=== PATIENT | female | born 1950 | race Hispanic/Latino ===

== ENCOUNTER 2019-01-02 17:40 | Emergency (ER) | payer OTHER ==
--- OUTSIDE RECORDS SUMMARY | 2019-01-02 17:42 | XMS REPORT ---
:1950 [facility] Address [address] [place] [address] Dr. Armstrong [address] [place] [id number] Care Team Providers Name Role Phone Unavailable Unavailable Unavailable Problems This patient has no known problems. Allergies, Adverse Reactions, Alerts This patient has no known allergies or adverse reactions. Medications This patient has no known medications.
--- NOTE | 2019-01-02 19:07 | EDPHYS ---
Physician Documentation [facility] Name: Renay Quinones Age: 68 yrs Sex: Female : 1950 Arrival Date: 01/02/2019 Time: 17:40 Bed 12 Private MD: Ronen Erickson S ED Physician Hever Montemayor HPI: 01/02 19:03 This 68 yrs old Female presents to ER via Ambulatory with complaints of Arm ma2 Injury. 19:03 The patient or guardian complains of pain. The complaints affect the right bicep. ma2 Onset: The symptoms/episode began/occurred suddenly, 1 hour(s) ago. Associated signs and symptoms: Pertinent negatives: deformity, nausea, swelling, tingling. Severity of symptoms: At their worst the symptoms were mild, in the emergency department the symptoms have improved. lifted heavy stuff and had sudden right arm pain over biceps . Historical: - Allergies: 17:58 NKA; hb - Home Meds: 17:58 diclofenac sodium 3 % Topical gel [Active]; simvastatin 40 mg Oral tab 1 tab once daily hb [Active]; amlodipine 5 mg tab 1 tab once daily [Active]; carvedilol 6.25 mg oral tab 1 tab 2 times per day [Active]; - PMHx: 17:58 Hyperlipidemia; Hypertension; Kidney Disease; hb - PSHx: 17:58 herniated disc; uterine ablation; Cholecystectomy; hb - Immunization history:: Adult Immunizations up to date. - Social history:: Smoking status: Patient/guardian denies using tobacco, Patient/guardian denies using alcohol, street drugs, The patient lives with family. - Ebola Screening: : No symptoms or risks identified at this time. - Family history:: not pertinent. ROS: 19:03 Constitutional: Negative for fever, chills, and weight loss. ma2 19:03 MS/extremity: Positive for pain, Negative for contusion, deformity, rash, tenderness. 19:03 All other systems are negative. Exam: 19:03 Constitutional: This is a well developed, well nourished patient who is awake, alert, ma2 and in no acute distress. Cardiovascular: Regular rate and rhythm with a normal S1 and S2. No gallops, murmurs, or rubs. Normal PMI, no JVD. No pulse deficits. Respiratory: Lungs have equal breath sounds bilaterally, clear to auscultation and percussion. No rales, rhonchi or wheezes noted. No increased work of breathing, no retractions or nasal flaring. Abdomen/GI: Soft, non-tender, with normal bowel sounds. No distension or tympany. No guarding or rebound. No evidence of tenderness throughout. Skin: Warm, dry with normal turgor. Normal color with no rashes, no lesions, and no evidence of cellulitis. Neuro: Awake and alert, GCS 15, oriented to person, place, time, and situation. Cranial nerves II-XII grossly intact. Motor strength 5/5 in all extremities. Sensory grossly intact. Cerebellar exam normal. Normal gait. 19:03 Musculoskeletal/extremity: ROM: intact in all extremities, Circulation is intact in all extremities. Sensation intact. has ttp over right biceps . Vital Signs: 17:56 BP 159 / 88; Pulse 73; Resp 16; Temp 97.9; Pulse Ox 98% on R/A; Pain 8/10; hb MDM: 18:03 Patient medically screened. ma2 19:03 Differential diagnosis: muscle sprain. Data reviewed: vital signs, nurses notes. ma2 Counseling: I had a detailed discussion with the patient and/or guardian regarding: the historical points, exam findings, and any diagnostic results supporting the discharge/admit diagnosis, the presence of at least one elevated blood pressure reading (>120/80) during this emergency department visit. ED course: declined pain rx . Administered Medications: No medications were administered Disposition: 01/02/19 19:06 Discharged to Home. Impression: Strain of muscle, fascia and tendon of long head of biceps, right arm. - Condition is Stable. - Discharge Instructions: Muscle Strain. - Prescriptions for Voltaren 1 % Topical gel - apply 2 gram by TOPICAL route 4 times per day; 1 Container. - Work release form, Medication Reconciliation Form, Thank You Letter, Antibiotic Education, Prescription Opioid Use form. - Follow up: Private Physician; When: Tomorrow; Reason: Continuance of care. Signatures: Adam Rose RN RN jl3 Kristin Baker RN RN Hever Montemayor MD MD ma2 Corrections: (The following items were deleted from the chart) 19:49 19:06 01/02/2019 19:06 Discharged to Home. Impression: Strain of muscle, fascia and jl3 tendon of long head of biceps, right arm. Condition is Stable. Forms are Medication Reconciliation Form, Thank You Letter, Antibiotic Education, Prescription Opioid Use. Follow up: Private Physician; When: Tomorrow; Reason: Continuance of care. ma2
--- NOTE | 2019-01-02 19:07 | ER ---
Nurse's Notes [facility] Name: Renay Quinones Age: 68 yrs Sex: Female : 1950 Arrival Date: 01/02/2019 Time: 17:40 Bed 12 Private MD: Ronen Erickson S Diagnosis: Strain of muscle, fascia and tendon of long head of biceps, right arm Presentation: 01/02 17:55 Presenting complaint: Right upper arm pain after moving heavy potted plant approx 30 hb mins [employer]. Transition of care: patient was not received from another setting of care. Onset of symptoms was January 02, 2019. Risk Assessment: Do you want to hurt yourself or someone else? Patient reports no desire to harm self or others. Care prior to arrival: None. 17:55 Method Of Arrival: Ambulatory 17:55 Acuity: FREDI 4 hb 18:03 Initial Sepsis Screen: Does the patient meet any 2 criteria? No. Patient's initial mg2 sepsis screen is negative. Does the patient have a suspected source of infection? No. Patient's initial sepsis screen is negative. Triage Assessment: 18:17 General: Appears in no apparent distress. comfortable. Injury Description: swelling. mg2 Historical: - Allergies: 17:58 NKA; hb - Home Meds: 17:58 diclofenac sodium 3 % Topical gel [Active]; simvastatin 40 mg Oral tab 1 tab once daily hb [Active]; amlodipine 5 mg tab 1 tab once daily [Active]; carvedilol 6.25 mg oral tab 1 tab 2 times per day [Active]; - PMHx: 17:58 Hyperlipidemia; Hypertension; Kidney Disease; hb - PSHx: 17:58 herniated disc; uterine ablation; Cholecystectomy; hb - Immunization history:: Adult Immunizations up to date. - Social history:: Smoking status: Patient/guardian denies using tobacco, Patient/guardian denies using alcohol, street drugs, The patient lives with family. - Ebola Screening: : No symptoms or risks identified at this time. - Family history:: not pertinent. Screenin:02 Abuse screen: Denies threats or abuse. Denies injuries from another. Abuse screen: mg2 Denies threats or abuse. Nutritional screening: No deficits noted. Tuberculosis screening: No symptoms or risk factors identified. Fall Risk None identified. Assessment: 18:15 General: Appears in no apparent distress. comfortable, Behavior is calm, cooperative. mg2 Pain: Complains of pain in right arm Pain radiates to right hand Pain currently is 4 out of 10 on a pain scale. Quality of pain is described as aching, Pain began suddenly, 30 min ago. Neuro: Level of Consciousness is awake, alert, obeys commands, Oriented to person, place, time, situation. Cardiovascular: Capillary refill < 3 seconds Patient's skin is warm and dry. Respiratory: Airway is patent Respiratory effort is even, unlabored, Respiratory pattern is regular, symmetrical. GI: No signs and/or symptoms were reported involving the gastrointestinal system. : No signs and/or symptoms were reported regarding the genitourinary system. EENT: No signs and/or symptoms were reported regarding the EENT system. Derm: Skin is intact, is healthy with good turgor, Skin is pink, warm \T\ dry. normal. Musculoskeletal: Circulation, motion, and sensation intact. Capillary refill < 3 seconds, Swelling present in right upper arm. 19:44 Reassessment: Pt given instructions, verbalized understanding. Ambulatory, cooperative, jl3 with family.. Vital Signs: 17:56 BP 159 / 88; Pulse 73; Resp 16; Temp 97.9; Pulse Ox 98% on R/A; Pain 8/10; hb ED Course: 17:40 Patient arrived in ED. as 17:40 Ronen Erickson MD is Private Physician. as 17:56 Triage completed. hb 17:58 Arm band placed on. hb 18:02 Alonzo Mckeon, SEBASTIÁN is Primary Nurse. mg2 18:02 Hever Montemayor MD is Attending Physician. ma2 18:03 Patient has correct armband on for positive identification. mg2 18:03 No provider procedures requiring assistance completed. Patient did not have IV access mg2 during this emergency room visit. 18:17 Door closed. Ice pack to injury. mg2 Administered Medications: No medications were administered Outcome: 19:06 Discharge ordered by . ma2 19:46 Discharged to home via ambulance, with family. jl3 19:46 Condition: good 19:46 Condition: stable 19:46 Discharge instructions given to patient, family, Instructed on discharge instructions, Prescriptions given X 1. 19:49 Patient left the ED. jl3 Signatures: Trini Soriano John, RN RN jl3 Kristin Baker RN RN hb Hever Montemayor MD MD ma2 Alonzo Mckeon, RN RN mg2
== END 2019-01-02 19:49 | disposition home or self-care (01) ==
LOC: ER 17:40
DX: S46.111A Strain of muscle, fascia and tendon of long head of biceps, right arm, initial encounter (principal); X50.0XXA Overexertion from strenuous movement or load, initial encounter; E78.5 Hyperlipidemia, unspecified; I10 Essential (primary) hypertension; N28.9 Disorder of kidney and ureter, unspecified
CPT/HCPCS: 99282

== ENCOUNTER 2020-04-23 17:17 | Inpatient (IN) | payer OTHER ==
[2020-04-23] MEDS ORDERED: ACETAMINOPHEN 500 MG TAB ONE (18:22)
[2020-04-23] MEDS ORDERED: NA CHLORIDE 0.9% 2,000 ML ONE (18:22)
--- NOTE | 2020-04-23 18:38 | EDPHYS ---
Physician Documentation [facility] Name: Renay Quinones Age: 69 yrs Sex: Female : 1950 Arrival Date: 04/23/2020 Time: 17:18 Bed 8 Private MD: ED Physician Vasquez Vance HPI: 04/23 18:17 This 69 yrs old Female presents to ER via Ambulatory with complaints of kdr Shortness Of Breath - covid+, Nausea/Vomiting. 18:17 The patient has shortness of breath at rest, with light activity. Onset: The kdr symptoms/episode began/occurred suddenly, 1 week(s) ago. Duration: The symptoms are continuous, and are steadily getting worse. The patient's shortness of breath is aggravated by coughing, exertion, light activity, prone position. Associated signs and symptoms: Pertinent positives: productive cough, fever. Severity of symptoms: At their worst the symptoms were moderate severe. The patient has not experienced similar symptoms in the past. last week at [place]. Historical: - Allergies: 17:33 NKA; ss - Home Meds: 17:33 amlodipine 5 mg tab 1 tab once daily [Active]; ss - PMHx: 17:33 Hyperlipidemia; Hypertension; kidney disease; ss - PSHx: 17:33 herniated disc; uterine ablation; Cholecystectomy; ss - Immunization history:: Adult Immunizations up to date. - Social history:: Smoking status: Patient denies any tobacco usage or history of. ROS: 18:17 Constitutional: Negative for weight loss - has had fever and chills for the past week kdr Eyes: Negative for injury, pain, redness, and discharge, Neck: Negative for injury, pain, and swelling, Cardiovascular: Negative for chest pain, palpitations, and edema, Abdomen/GI: Negative for abdominal pain, nausea, vomiting, diarrhea, and constipation, Back: Negative for injury and pain, : Negative for injury, bleeding, discharge, and swelling, MS/Extremity: Negative for injury and deformity, Skin: Negative for injury, rash, and discoloration, Neuro: Negative for headache, weakness, numbness, tingling, and seizure activity. Psych: Negative for depression, anxiety, suicide ideation, homicidal ideation, and hallucinations, Allergy/Immunology: Negative for hives, rash, and allergies, Endocrine: Negative for neck swelling, polydipsia, polyuria, polyphagia, and marked weight changes, Hematologic/Lymphatic: Negative for swollen nodes, abnormal bleeding, and unusual bruising. 18:17 Respiratory: Positive for cough, dyspnea on exertion, shortness of breath. Exam: 18:17 Constitutional: This is a well developed, well nourished patient who is awake, alert, kdr and mild to moderate distress. Head/Face: Normocephalic, atraumatic. Eyes: Pupils equal round and reactive to light, extra-ocular motions intact. Lids and lashes normal. Conjunctiva and sclera are non-icteric and not injected. Cornea within normal limits. Periorbital areas with no swelling, redness, or edema. Neck: Trachea midline, no thyromegaly or masses palpated, and no cervical lymphadenopathy. Supple, full range of motion without nuchal rigidity, or vertebral point tenderness. No Meningismus. Chest/axilla: Normal chest wall appearance and motion. Nontender with no deformity. No lesions are appreciated. Cardiovascular: Regular rate and rhythm with a normal S1 and S2. No gallops, murmurs, or rubs. Normal PMI, no JVD. No pulse deficits. Abdomen/GI: Soft, non-tender, with normal bowel sounds. No distension or tympany. No guarding or rebound. No evidence of tenderness throughout. Back: No spinal tenderness. No costovertebral tenderness. Full range of motion. Skin: Warm, dry with normal turgor. Normal color with no rashes, no lesions, and no evidence of cellulitis. MS/ Extremity: Pulses equal, no cyanosis. Neurovascular intact. Full, normal range of motion. Neuro: Awake and alert, GCS 15, oriented to person, place, time, and situation. Cranial nerves II-XII grossly intact. Motor strength 5/5 in all extremities. Sensory grossly intact. Cerebellar exam normal. Normal gait. Psych: Awake, alert, with orientation to person, place and time. Behavior, mood, and affect are within normal limits. 18:17 Respiratory: the patient does not display signs of respiratory distress, Respirations: normal, Breath sounds: are clear throughout, Respiratory rate: 26 Vital Signs: 17:28 BP 139 / 105; Pulse 140; Resp 26; Temp 100.1(O); Pulse Ox 87% on R/A; Weight 67.13 kg; ss Height 5 ft. 2 in. (157.48 cm); Pain 8/10; 19:00 BP 123 / 75; Pulse 84; Resp 19; Pulse Ox 99% on R/A; Pain 4/10; ls4 19:32 BP 128 / 84; Pulse 122; Resp 25; Pulse Ox 93% on R/A; Pain 6/10; ls4 20:00 BP 109 / 73; Pulse 116; Resp 14; Temp 99.(O); Pulse Ox 97% on 1.5 lpm NC; Pain 4/10; ls4 21:51 BP 111 / 78; Pulse 84; Resp 19; Pulse Ox 96% on 2 lpm NC; Pain 3/10; ls4 22:36 BP 105 / 70; Pulse 88; Resp 16; Temp 99.4; Pulse Ox 97% on R/A; Pain 3/10; ls4 23:30 BP 117 / 68; Pulse 70; Resp 19; Pulse Ox 97% ; ea 04/24 00:00 BP 126 / 76; Pulse 70; Resp 17; Pulse Ox 98% ; ea 00:30 BP 107 / 72; Pulse 65; Resp 18; Pulse Ox 100% on 2 lpm NC; Pain 3/10; ls4 04/23 17:28 Body Mass Index 27.07 (67.13 kg, 157.48 cm) 04/23 19:32 o2 applied ls4 MDM: 18:38 Patient medically screened. kdr 04/24 08:53 Data reviewed: vital signs, nurses notes, lab test result(s), radiologic studies. kdr Counseling: I had a detailed discussion with the patient and/or guardian regarding: the historical points, exam findings, and any diagnostic results supporting the discharge/admit diagnosis, lab results, radiology results, the need for outpatient follow up. 04/23 18:08 Order name: Amylase, Serum [facility] 04/23 18:08 Order name: Basic Metabolic Panel [facility] 04/23 18:08 Order name: Blood Culture Adult (2) [facility] 04/23 18:08 Order name: CBC with Diff [facility] 04/23 18:08 Order name: Ckmb [facility] 04/23 18:08 Order name: CPK [facility] 04/23 18:08 Order name: Lactate [facility] 04/23 18:08 Order name: LFT's [facility] 04/23 18:08 Order name: Lipase [facility] 04/23 18:08 Order name: Procalcitonin [facility] 04/23 18:08 Order name: Protime (+inr) [facility] 04/23 18:08 Order name: Ptt, Activated 4 04/23 18:08 Order name: Troponin (emerg Dept Use Only) [facility] 04/23 18:08 Order name: Urine Microscopic Only 4 04/23 19:01 Order name: Flu 4 04/23 21:54 Order name: C-Reactive Protein [facility] 04/23 21:54 Order name: D-Dimer [facility] 04/23 21:54 Order name: Ferritin [facility] 04/23 21:54 Order name: Lactic Dehydrogenase [facility] 04/23 21:54 Order name: Procalcitonin [facility] 04/23 21:54 Order name: CBC with Automated Diff [facility] 04/23 21:54 Order name: CBC with Automated Diff [facility] 04/23 21:54 Order name: Comprehensive Metabolic Panel [facility] 04/23 21:54 Order name: Comprehensive Metabolic Panel [facility] 04/23 21:54 Order name: Lactate [facility] 04/23 21:54 Order name: Lactate ED[facility] 04/23 21:54 Order name: Lipid Profile [facility] 04/23 21:54 Order name: Lipid Profile [facility] 04/23 21:54 Order name: Magnesium [facility] 04/23 21:54 Order name: Magnesium EDMS 04/23 17:48 Order name: Chest Single View XRAY 1 04/23 18:08 Order name: Cardiac monitoring; Complete Time: 18:11 [facility] 04/23 18:08 Order name: EKG - Nurse/Tech; Complete Time: 18:11 [facility] 04/23 18:08 Order name: IV Saline Lock - Large Bore; Complete Time: 18:11 [facility] 04/23 18:08 Order name: Labs collected and sent; Complete Time: 00:25 [facility] 04/23 18:08 Order name: O2 Per Protocol; Complete Time: 00:25 [facility] 04/23 18:08 Order name: O2 Sat Monitoring; Complete Time: 00:26 [facility] 04/23 21:54 Order name: CONS Physician Consult [facility] 04/23 21:54 Order name: Regular [facility] 04/23 21:54 Order name: NT PRO-BNP EDMS 04/23 21:54 Order name: NT PRO-BNP EDMS 04/23 21:54 Order name: Phosphorus EDMS 04/23 21:54 Order name: Phosphorus EDMS 04/23 21:54 Order name: Protime (+INR) [facility] 04/23 21:54 Order name: Protime (+INR) ED[facility] 04/23 21:54 Order name: PTT, Activated Partial Thromb ED[facility] 04/23 21:54 Order name: PTT, Activated Partial Thromb [facility] 04/23 21:54 Order name: T4 Free ED[facility] 04/23 21:54 Order name: T4 Free ED[facility] 04/23 21:54 Order name: Thyroid Stimulating Hormone EDMS 04/23 21:54 Order name: Thyroid Stimulating Hormone EDMS Administered Medications: 04/23 18:23 Drug: NS 0.9% 500 ml Route: IV; Rate: bolus; Site: right subclavian; ls4 19:02 Follow up: IV Status: Completed infusion; IV Intake: 500ml ls4 18:28 Drug: Tylenol 1000 mg Route: PO; ls4 18:42 Follow up: Response: No adverse reaction; Marked relief of symptoms ls4 18:39 Not Given (Other Intervention Used): Decadron - Dexamethasone 10 mg IVP once ls4 18:41 Not Given (Physician Discretion): NS 0.9% (30 ml/kg) 30 ml/kg IV at bolus once; Sepsis ls4 Protocol 18:58 Drug: Zithromax 500 mg Route: IVPB; Infused Over: 1 hrs; Site: right antecubital; ls4 19:58 Follow up: Response: No adverse reaction; IV Status: Completed infusion; IV Intake: ls4 250ml 18:58 Drug: Decadron - Dexamethasone 6 mg Route: IVP; Site: right antecubital; ls4 19:02 Follow up: Response: No adverse reaction ls4 18:59 Drug: Rocephin - (cefTRIAXone) 1 grams Route: IVPB; Infused Over: 30 mins; Site: right ls4 forearm; 19:10 Follow up: IV Status: Completed infusion; IV Intake: 10ml ls4 Disposition: 04/23/20 18:38 Hospitalization ordered by Hever Rosenbaum for Inpatient Admission. Preliminary diagnosis is Sepsis. - Bed requested for Intensive Care Unit. - Status is Inpatient Admission. ls4 - Condition is Serious. - Problem is new. - Symptoms have improved. Signatures: Dispatcher [employer] EDMS Vasquez Vance MD MD kdr Cindy May, RN RN ss Adelina Lopez RN RN tl1 Rossy Kang RN RN ls4 Corrections: (The following items were deleted from the chart) 18:12 18:10 UA MICROSCOPIC+U.LAB.BRZ ordered. ED[facility] EDMS 22:14 18:38 Hospitalization Ordered by Hever Rosenbaum MD for Inpatient Admission. Preliminary tl1 diagnosis is Sepsis. Bed requested for Telemetry/MedSurg (Inpatient). Status is Inpatient Admission. Condition is Serious. Problem is new. Symptoms have improved. kdr 07 01:16 07 22:14 04/23/2020 18:38 Hospitalization Ordered by Hever Rosenbaum MD for Inpatient ls4 Admission. Preliminary diagnosis is Sepsis. Bed requested for Intensive Care Unit. Status is Inpatient Admission. Condition is Serious. Problem is new. Symptoms have improved. tl1
--- NOTE | 2020-04-23 18:38 | ER ---
Nurse's Notes [facility] Name: Renay Quinones Age: 69 yrs Sex: Female : 1950 Arrival Date: 04/23/2020 Time: 17:18 Bed 8 Private MD: Diagnosis: Sepsis Presentation: 04/23 17:28 Chief complaint: Patient states: shortness of breath and cough for 3 days, N/V/D for ss about 1 week, was covid pos 1 week ago, also reports chest pains. Coronavirus screen: Surgical mask placed on patient. Patient moved to private room, placed in contact and droplet isolation with eye protection until further assessment. Patient reports a cough. Patient reports shortness of breath or difficulty breathing. Patient reports a measured and/or subjective temperature greater than 100.4F. Patient denies travel on a cruise ship or to a country the [facility] currently lists as an affected area. Patient denies contact with known and/or suspected case of COVID-19. Prior COVID test confirmed positive. Ebola Screen: Patient negative for fever greater than or equal to 101.5 degrees Fahrenheit, and additional compatible Ebola Virus Disease symptoms Patient denies exposure to infectious person. Patient denies travel to an Ebola-affected area in the 21 days before illness onset. No symptoms or risks identified at this time. Initial Sepsis Screen: Does the patient meet any 2 criteria? RR > 20 per min. HR > 90 bpm. Yes Does the patient have a suspected source of infection? Yes: Productive cough/pneumonia If YES to both, name of provider notified: Vasquez Vance MD. Risk Assessment: Do you want to hurt yourself or someone else? Patient reports no desire to harm self or others. Onset of symptoms was April 18, 2020. 17:28 Method Of Arrival: Ambulatory ss 17:28 Acuity: FREDI 2 ss Triage Assessment: 18:43 General: Appears in no apparent distress. comfortable. Pain: Complains of pain in ls4 generalized. 18:43 General: Behavior is calm, cooperative. Neuro: No deficits noted. Cardiovascular: ls4 Capillary refill < 3 seconds Patient's skin is warm and dry. Rhythm is sinus tachycardia. Respiratory: Reports shortness of breath at rest cough that is non-productive, Airway is patent Respiratory effort is even, unlabored, Respiratory pattern is regular, Onset: The symptoms/episode began/occurred at an unknown time. the patient has moderate shortness of breath. Musculoskeletal: No deficits noted. No signs and/or symptoms reported regarding the musculoskeletal system. Historical: - Allergies: 17:33 NKA; ss - Home Meds: 17:33 amlodipine 5 mg tab 1 tab once daily [Active]; ss - PMHx: 17:33 Hyperlipidemia; Hypertension; kidney disease; ss - PSHx: 17:33 herniated disc; uterine ablation; Cholecystectomy; ss - Immunization history:: Adult Immunizations up to date. - Social history:: Smoking status: Patient denies any tobacco usage or history of. Screenin:36 Abuse screen: Denies threats or abuse. Denies injuries from another. Nutritional ls4 screening: No deficits noted. Tuberculosis screening: No symptoms or risk factors identified. Fall Risk None identified. Assessment: 17:30 Reassessment: Patient appears in no apparent distress at this time. Patient and/or ls4 family updated on plan of care and expected duration. Pain level reassessed. Patient is alert, oriented x 3, equal unlabored respirations, skin warm/dry/pink. 17:30 Cardiovascular: Denies chest pain, Capillary refill < 3 seconds. ls4 17:37 Respiratory: Airway is patent Respiratory effort is labored, Respiratory pattern is ls4 tachypnea Breath sounds are diminished bilaterally. 17:44 Reassessment: Patient appears in no apparent distress at this time. Patient and/or ls4 family updated on plan of care and expected duration. Pain level reassessed. Patient is alert, oriented x 3, equal unlabored respirations, skin warm/dry/pink. Patient states symptoms have improved. 17:44 Cardiovascular: Rhythm is sinus tachycardia. ls4 21:52 Reassessment: Patient appears in no apparent distress at this time. Patient and/or ls4 family updated on plan of care and expected duration. Pain level reassessed. Patient is alert, oriented x 3, equal unlabored respirations, skin warm/dry/pink. 22:41 Reassessment: REPORT TO DODIE LOGAN RN, AWAITING CURTAIN IN ROOM TO TRANSPORT. ls4 04/24 00:38 Reassessment: Patient appears in no apparent distress at this time. Patient and/or ls4 family updated on plan of care and expected duration. Pain level reassessed. Patient is alert, oriented x 3, equal unlabored respirations, skin warm/dry/pink. Vital Signs: 04/23 17:28 BP 139 / 105; Pulse 140; Resp 26; Temp 100.1(O); Pulse Ox 87% on R/A; Weight 67.13 kg; ss Height 5 ft. 2 in. (157.48 cm); Pain 8/10; 19:00 BP 123 / 75; Pulse 84; Resp 19; Pulse Ox 99% on R/A; Pain 4/10; ls4 19:32 BP 128 / 84; Pulse 122; Resp 25; Pulse Ox 93% on R/A; Pain 6/10; ls4 20:00 BP 109 / 73; Pulse 116; Resp 14; Temp 99.(O); Pulse Ox 97% on 1.5 lpm NC; Pain 4/10; ls4 21:51 BP 111 / 78; Pulse 84; Resp 19; Pulse Ox 96% on 2 lpm NC; Pain 3/10; ls4 22:36 BP 105 / 70; Pulse 88; Resp 16; Temp 99.4; Pulse Ox 97% on R/A; Pain 3/10; ls4 23:30 BP 117 / 68; Pulse 70; Resp 19; Pulse Ox 97% ; ea 04/24 00:00 BP 126 / 76; Pulse 70; Resp 17; Pulse Ox 98% ; ea 00:30 BP 107 / 72; Pulse 65; Resp 18; Pulse Ox 100% on 2 lpm NC; Pain 3/10; ls4 04/23 17:28 Body Mass Index 27.07 (67.13 kg, 157.48 cm) ss 04/23 19:32 o2 applied ls4 ED Course: 17:18 Patient arrived in ED. as 17:32 Triage completed. ss 17:33 Arm band placed on. ss 17:35 Rossy Kang, RN is Primary Nurse. ls4 17:55 Chest Single View XRAY In Process Unspecified. EDMS 18:09 No provider procedures requiring assistance completed. Initial lab(s) drawn, by edgar [email or web address] sent to lab. EKG done, by ED staff. Inserted saline lock: 18 gauge in left antecubital area, using aseptic technique. Blood collected. Patient maintains SpO2 saturation greater than 95% on room air. 18:16 Vasquez Vance MD is Attending Physician. kdr 18:32 Hever Rosenbaum MD is Hospitalizing Provider. kdr 18:45 Patient has correct armband on for positive identification. Bed in low position. Call ls4 light in reach. Side rails up X 1. monitor technician on. Pulse ox on. NIBP on. 21:52 No apparent distress. Awaiting bed assignment. ls4 04/24 00:25 Patient admitted, IV remains in place. ea Administered Medications: 04/23 18:23 Drug: NS 0.9% 500 ml Route: IV; Rate: bolus; Site: right subclavian; ls4 19:02 Follow up: IV Status: Completed infusion; IV Intake: 500ml ls4 18:28 Drug: Tylenol 1000 mg Route: PO; ls4 18:42 Follow up: Response: No adverse reaction; Marked relief of symptoms ls4 18:39 Not Given (Other Intervention Used): Decadron - Dexamethasone 10 mg IVP once ls4 18:41 Not Given (Physician Discretion): NS 0.9% (30 ml/kg) 30 ml/kg IV at bolus once; Sepsis ls4 Protocol 18:58 Drug: Zithromax 500 mg Route: IVPB; Infused Over: 1 hrs; Site: right antecubital; ls4 19:58 Follow up: Response: No adverse reaction; IV Status: Completed infusion; IV Intake: ls4 250ml 18:58 Drug: Decadron - Dexamethasone 6 mg Route: IVP; Site: right antecubital; ls4 19:02 Follow up: Response: No adverse reaction ls4 18:59 Drug: Rocephin - (cefTRIAXone) 1 grams Route: IVPB; Infused Over: 30 mins; Site: right ls4 forearm; 19:10 Follow up: IV Status: Completed infusion; IV Intake: 10ml ls4 Intake: 19:02 IV: 500ml; Total: 500ml. ls4 19:10 IV: 10ml; Total: 510ml. ls4 19:58 IV: 250ml; Total: 760ml. ls4 Outcome: 18:38 Decision to Hospitalize by Provider. kdr 19:00 Instructed on the need for admit, Demonstrated understanding of instructions. ea 04/24 01:14 Admitted to ICU accompanied by tech, room 7, with oxygen, Other ICU OVERFLOW Report ls4 called to DODIE LOGAN Condition: improved 01:16 Patient left the ED. ls4 Signatures: Dispatcher [employer] EDMS Vasquez Vance MD MD kdr Martinez, Amelia as Smirch, Shelby, RN RN ss Antunez, Elena, RN RN ea Stewart, Lisa, RN RN ls4 Corrections: (The following items were deleted from the chart) 04/23 20:28 20:27 IV Status: Completed infusion; IV Intake: 10ml ls4 ls4 20:46 18:30 Reassessment: Patient appears in no apparent distress at this time. Patient ls4 and/or family updated on plan of care and expected duration. Pain level reassessed. Patient is alert, oriented x 3, equal unlabored respirations, skin warm/dry/pink. Patient states symptoms have improved. ls4 22:41 20:00 BP 109 / 73; Pulse 88bpm; Resp 14bpm; Pulse Ox 97% 1.5 lpm Nasal Cannula; Temp ls4 99.F Oral; Pain 4/10; ls4
[2020-04-23] MEDS ORDERED: dexAMETHasone 10 MG/ML VIAL ONE (18:46)
[2020-04-23] MEDS ORDERED: CEFTRIAXONE/SWI 1gm 1 GM/10 ML SYR ONE (18:46)
[2020-04-23] MEDS ORDERED: AZITHROMYCIN 500 MG INJ IVPB ONE (18:46)
[2020-04-23] MEDS ORDERED: NA CHLORIDE 0.9% 250 ML ONE (18:47)
[2020-04-23 18:48] LABS: Absolute Lymphocytes (CBC) 0.6 K/uL (0.7-4.9); Basophils % 0.4 % (0-1.3); Hematocrit 44.7 % (36.0-45.0); Lymphocytes % 10.9 % (15.3-44.8); MPV 9.4 fL (7.6-11.3); RBC Red Blood Cell Count 5.03 M/uL (3.86-4.86)
[2020-04-23 18:57] LABS: Protime INR 1.15
--- NOTE | 2020-04-23 18:59 | RAD REPORT ---
EXAM DESCRIPTION: RAD - Chest Single View - 04/23/2020 5:54 pm CLINICAL HISTORY: sepsis, cough, shortness of breath, COVID positive test 1 week earlier COMPARISON: Chest exam March 27, 2019 TECHNIQUE: AP portable chest image was obtained 04/23/2020 5:54 pm . FINDINGS: Lung volumes are low compared to prior study. Ill-defined opacification is present in the mid right lung field. Left heart border is obscured by parenchymal stranding and low lung volumes. No significant failure or volume overload. Heart size and vasculature are not outside of normal range f or the low lung volumes. Trachea is midline. No measurable pleural effusion and no pneumothorax. No a cute bony abnormality seen. No acute aortic findings suspected. IMPRESSION: Hazy ground-glass type opacification in the right midlung field. Hazy left base opacific ation. Findings are suspicious for COVID-19 pneumonia given the radiographic findings and the positive COVID -19 test.
[2020-04-23 19:01] LABS: ALT/SGPT 34 U/L (12-78); Albumin 3.3 g/dL (3.4-5.0); Alkaline Phosphatase 84 U/L (45-117); Amylase 127 U/L (25-115); BUN Blood Urea Nitrogen 30 mg/dL (7-18); Bicarbonate 20 mmol/L (21-32); Bilirubin Direct 0.2 mg/dL (0-0.2); Bilirubin Total 0.6 mg/dL (0.2-1.0); CKMB Creatine Kinase MB < 1.0 ng/mL (0.3-3.6); Creatine Phosphokinase 51 U/L (26-192); Glucose Level 144 mg/dL (74-106); Lipase 409 U/L (73-393); Protein, Total 8.1 g/dL (6.4-8.2); Sodium Level 139 mmol/L (136-145); Troponin (Emerg Dept Use Only) < 0.02 ng/mL (0.0-0.045)
[2020-04-23 19:02] LABS: AST/SGOT 47 U/L (15-37); Potassium 3.9 mmol/L (3.5-5.1)
--- OUTSIDE RECORDS SUMMARY | 2020-04-23 19:28 | XMS REPORT | Summary of Care ---
:1950 Author Organization [facility] Address [address] [place] [id number] Care Team Providers Name Role Phone Guadalupe Smith Primary Care Provider Reason for Visit Reason Comments Assessment Encounter Details Date Type Department Care Team Description 02/19/2020 Telephone [facility] Family Medicine [place] all[place], DOMINIC Navarro Assessment - [address] [place] [address] [place] [address] [phone] Allergies No Known Allergiesdocumented as of this encounter (statuses as of 02/19/2020) Medications Medication Sig Dispensed Refills Start Date End Date Status amLODIPine 5 mg Take 5 mg by 0 04/28/2018 Active tabletIndications: mouth daily. Essential hypertension amitriptyline 25 mg 1-2 tab at 60 tablet 1 09/28/2018 Active tabletIndications: bedtime to relax Trapezius muscle spasm muscles. meclizine 25 mg Take 1 tablet by 30 tablet 0 02/03/2019 Active tabletIndications: mouth 3 (three) Vertigo times daily as needed for Dizziness. nebivolol (BYSTOLIC) 5 Bystolic 5 mg 0 Active mg tablet tablet cyclobenzaprine 5 mg Take 1 tablet by 21 tablet 0 10/18/2019 Active tabletIndications: Neck mouth 3 (three) pain, Acute pain of left times daily. shoulder methylPREDNISolone 4 mg Take by mouth 21 Each 0 10/21/2019 Active tabletsIndications: SEE-INSTRUCTIONS Cervical disc disease . follow package directions Diclofenac Sodium Apply to 1 Tube 0 10/20/2019 A ctive (VOLTAREN) 1 % area(s) 4 (four) gelIndications: Cervical times daily as disc disease needed for Pain (scale 1-3). acetaminophen-codeine Take 1 tablet by 12 tablet 0 10/20/2019 Active (TYLENOL-CODEINE #3) mouth every 6 300-30 mg (six) hours as tabletIndications: needed for Pain Cervical disc disease (scale 7-10). documented as of this encounter (statuses as of 02/19/2020) Active Problems Problem Noted Date Prediabetes 09/07/2017 Pancreatitis 08/27/2017 Essential hypertension 11/17/2015 Hyperlipidemia 11/17/2015 documented as of this encounter (statuses as of 02/19/2020) Immunizations Name Administration Dates Next Due Pneumococcal Polysaccharide, PPSV23 (PNEUMOVAX) 08/28/2017 Tdap 05/25/2019 documented as of this encounter Social History Tobacco Use Types Packs/Day Years Used Date Never Smoker Smokeless Tobacco: Never Used Alcohol Use Drinks/Week oz/Week Comments Yes 0 Standard drinks or equivalent 0.0 rare Sex Assigned at Date Recorded Not on file Job Start Date Occupation Industry Not on file Not on file Not on file Travel History Travel Start Travel End No recent travel history available. documented as of this encounter Last Filed Vital Signs Not on filedocumented in this encounter Plan of Treatment Date Type Specialty Care Team Description 02/19/2020 Telemedicine Visit Family Medicine Franco Gonzalez MD [address] [place] [address] [phone] Health Maintenance Due Date Last Done Comments HEPATITIS C (HCV) SCREEN 1950 Zoster Recombinant Vaccine 2002 (SHINGRIX) (1 of 2) Medicare Wellness Visit 2017 Osteoporosis Screening 2017 PNEUMOCOCCAL VACCINES 65+ (2 of 2 08/28/2018 08/28/2017 - PCV13) INFLUENZA VACCINE (#1) 2019 Breast Cancer Screening 05/25/2020 05/25/2019, 05/02/2018, (MAMMOGRAM) 04/25/2017, Additional history exists COLONOSCOPY 05/24/2028 05/24/2018 DTaP,Tdap,and Td Vaccines (2 - Td) 05/25/2029 05/25/2019 documented as of this encounter Results Not on filedocumented in this encounter Insurance Payer Benefit Plan / Subscriber ID Effective Dates Phone Addre ss Type Group AETNA AETNA O [id number] 2011-Tiana O nt MEDICARE MEDICARE PART xxxxxxxxxxx 2017-Daniel [phone] Medicare A 2 [id number] DOMINIC FARIA [id number] documented as of this encounter
--- OUTSIDE RECORDS SUMMARY | 2020-04-23 19:28 | XMS REPORT | Continuity of Care Document ---
:1950 Author Organization [facility] t Address [address] [place] [address] Care Team Providers Name Role Phone Pob1, Care Clinic Attending Clinician Unavailable Lisa KOWALSKI, A Attending Clinician Luis ALFARO, A Attending Clinician Doctor Unassigned, Name Attending Clinician Unavailable Problems This patient has no known problems. Allergies, Adverse Reactions, Alerts This patient has no known allergies or adverse reactions. Medications This patient has no known medications. Procedures This patient has no known procedures. Encounters Start End Encounter Admission Attending Care Care Encounter Source Date/Time Date/Time Type Type Clinicians Facility Department ID 2020-04-18 2020-04-18 Telephone Pob1, Acute [facility] [id number] 00:00:00 00:00:00 [facility] [id number] [place] [id number] Professio [phone] [place] [address] 2020-04-16 2020-04-16 Urgent Pob1, Acute [facility] [id number] 10:38:18 10:58:18 [facility] [id number] [place] [id number] Professio [phone] nal [address] 2020-02-19 2020-02-19 [facility] [id number] 14:22:08 16:51:14 ne Visit Jose Falcon [id number] [place] [id number] [phone] 2020-02-19 2020-02-19 [facility] [id number] 00:00:00 00:00:00 [facility] [id number] [place] [id number] Professio [phone] [place] [address] [address] 2019-05-25 2019-05-25 [facility] [id number] 11:58:57 23:59:00 Encounter Dorcas Alveston [id number] [place] [id number] [place] [phone] [id number] 2019-05-25 2019-05-25 [facility] [id number] 11:58:49 23:59:00 Encounter Dorcas Butcher [place] [id number] [place] [id number] [place] [phone] [id number] 2019-05-25 2019-05-25 [facility] [id number] 10:44:06 11:35:07 Visit Dorcas [facility] [id number] [place] [id number] [facility] [phone] [place] [address] [address] 2018-09-04 2018-09-04 Orders Doctor AMADO [id number] 00:00:00 00:00:00 Only Unassigned, PASTORA [id number] [place] [facility] [phone] [id number] Results This patient has no known results.
--- OUTSIDE RECORDS SUMMARY | 2020-04-23 19:29 | XMS REPORT | Summary of Care ---
:1950 Author Organization [facility] Address [address] [place] [address] Care Team Providers Name Role Phone Guadalupe Smith Primary Care Provider Reason for Visit Reason Comments Results Encounter Details Date Type Department Care Team Description 04/18/2020 Telephone [facility] Family Medicine Pob1, Acute [facility] Results - [address] [place] [address] Allergies No Known Allergiesdocumented as of this encounter (statuses as of 04/18/2020) Medications Medication Sig Dispensed Refills Start Date [...] for Pain Cervical disc disease (scale 7-10). tiZANidine 4 mg Take 1 tablet by 30 tablet 0 02/19/2020 Active tabletIndications: Acute mouth every 8 pain of right shoulder, (eight) hours as Neck pain on right side, needed (muscle Upper back pain on right pain or spasm). side, Right-sided chest wall pain documented as of this encounter (statuses as of 04/18/2020) Active Problems Problem Noted Date Prediabetes 09/07/2017 Pancreatitis 08/27/2017 Essential hypertension 11/17/2015 Hyperlipidemia 11/17/2015 documented as of this encounter (statuses as of 04/18/2020) Immunizations Name Administration Dates Next Due Pneumococcal Polysaccharide, PPSV23 (PNEUMOVAX) 08/28/2017 TDAP 05/25/2019 documented as of this encounter Social [...] Travel End No recent travel history available. COVID-19 Exposure Response Date Recorded In the last month, have you been in contact with Yes 04/16/2020 10:41 AM CDT someone who was confirmed or suspected to have Coronavirus / COVID-19? documented as of this encounter Last Filed Vital Signs Not on filedocumented in this encounter Plan of Treatment Health Maintenance Due Date Last Done Comments HEPATITIS C (HCV) SCREEN 1950 Zoster Recombinant Vaccine 2002 (SHINGRIX) (1 of 2) Medicare Wellness Visit 2017 Osteoporosis Screening 2017 PNEUMOCOCCAL VACCINES 65+ (2 of 2 08/28/2018 08/28/2017 - PCV13) Breast Cancer Screening 05/25/2020 05/25/2019, 05/02/2018, (MAMMOGRAM) 04/25/2017, Additional history exists Depression Screening 05/25/2020 05/25/2019 INFLUENZA VACCINE (Season Ended) 2020 COLONOSCOPY 05/24/2028 05/24/2018 DTaP,Tdap,and Td Vaccines (2 - Td) 05/25/2029 05/25/2019 documented as of this encounter Results Not on filedocumented in this encounter Additional Health Concerns Infection Onset Date Last Indicated Resolved Time COVID-19 Confirmed 04/18/2020 04/18/2020 documented as of this encounter Insurance Payer Benefit Plan / Subscriber ID Effective Dates Phone Addre ss Type Group MEDICARE MEDICARE PART xxxxxxxxxxx 2017-Daniel [phone] [facility] Medicare A & B t 2 [id number] DOMINIC FARIA [id number] [facility] [id number] 2020-Daniel I ndemnity t documented as of this encounter
--- OUTSIDE RECORDS SUMMARY | 2020-04-23 19:29 | XMS REPORT | Summary of Care ---
:1950 Author Organization [facility] - [facility] Address [address] [place] [id number] Care Team Providers Name Role Phone Guadalupe Smith Primary Care Provider Reason for Visit Reason Comments Cough x 3 days Exposure covid 19 Encounter Details Date Type Department Care Team Description 04/16/2020 Urgent Care [facility] Family Kathy Smith PA [address] [place] [id number] Viral upper respiratory tract infection (Primary Dx); [place] [address], Acute Care Clinic Exposure to Covid-19 Virus; [address] [place] [address] [place] [address] Allergies No Known Allergiesdocumented as of this encounter (statuses as of 04/16/2020) Medications Medication Sig Dispensed Refills Start Date [...] as of this encounter (statuses as of 04/16/2020) Active Problems Problem Noted Date Prediabetes 09/07/2017 Pancreatitis 08/27/2017 Essential hypertension 11/17/2015 Hyperlipidemia 11/17/2015 documented as of this encounter (statuses as of 04/16/2020) Immunizations Name Administration Dates Next Due Pneumococcal [...] of this encounter Last Filed Vital Signs Vital Sign Reading Time Taken Comments Blood Pressure 122/80 04/16/2020 10:44 AM CDT Pulse 67 04/16/2020 10:44 AM CDT Temperature 36.1 C (97 F) 04/16/2020 10:44 AM CDT Respiratory Rate 18 04/16/2020 10:44 AM CDT Oxygen Saturation 98% 04/16/2020 10:44 AM CDT Inhaled Oxygen Concentration - - Weight 71.7 kg (158 lb) 04/16/2020 10:44 AM CDT Height 157.5 cm (5' 2") 04/16/2020 10:44 AM CDT Body Mass Index 28.9 04/16/2020 10:44 AM CDT documented in this encounter Patient Instructions Patient InstructionsAdam Mejia PA-C - 04/16/2020 2:00 PM CDT Patient Education Viral Upper Respiratory Illness (Adult) You have a viral upper respiratory illness (URI), which is another term for the common cold. This illness is contagious during the first few days. It is spread through the air by coughing and sneezing.It may also be spread by direct contact (touching the sick person and then touching your own eyes, nose, or mouth). Frequent handwashing will decrease risk of spread. Most viral illnesses go away within 7 to 10 days with rest and simple home remedies. Sometimes the illness may last for several weeks. Antibiotics will not kill a virus, and they are generally not prescribed for this condition. Home care If symptoms are severe, rest at home for the first 2 to 3 days. When you resume activity, don't let yourself get too tired. Don't smoke. If you need help stopping, talk with your healthcare provider. Avoid being exposed to cigarette smoke (yours or others). You may use acetaminophen or ibuprofen to control pain and fever, unless another medicine was prescribed.If you have chronic liver or kidney disease, have ever had a stomach ulcer or gastrointestinal bleeding, or are taking blood- thinning medicines, talk with your healthcare provider before usingthese medicines. Aspirin should never be given to anyone under 18 years of age who is ill with a viral infection or fever. It may cause severe liver or brain damage. Your appetite may be poor, so a light diet is fine. Stay well hydrated by drinking 6 to 8 glassesof fluids per day (water, soft drinks, juices, tea, or soup). Extra fluids will help loosen secretions in the nose and lungs. Ifgt-jry-ekxijjk cold medicines will not shorten the length of time youre sick, but they may be helpful for the following symptoms: cough, sore throat, and nasal and sinus congestion. If you takeprescription medicines, ask your healthcare provider or pharmacist which kylg-vjg-ajohjfb medicines are safe to use. (Note: Don't use decongestants if you have high blood pressure.) Follow-up care Follow up with your healthcare provider, or as advised. When to seek medical advice Call your healthcare provider right away if any of these occur: Cough with lots of colored sputum (mucus) Severe headache; face, neck, or ear pain Difficultyswallowingdue to throat pain Fever of 100.4F (38C) or higher, or as directed by your healthcare provider Call 911 Call 911 if any of these occur: Chest pain, shortness of breath, wheezing, or difficulty breathing Coughing up blood Very severe pain with swallowing, especially if it goes along with a muffled voice [employer] last reviewed this educational content on 03/24/201819998263-4039 [employer]. [address] [place] [address]. All rights reserved. This information is not intended as a substitute for professional medical care. Always follow your healthcare professional's instructions. documented in this encounter Progress Notes Adam Mejia PA-C - 04/16/2020 2:00 PM CDT COVID-19 Screening Clinic: [facility] Patient Name: Renay Quinones Date of : 1950 69 year old Primary Care Physician: Dorcas Smith During this visit: Full PPE was used, mask, face shield, gown, and gloves Chief Complaint Chief Complaint Patient presents with Cough x 3 days Exposure covid 19 HPI 4 day h/o cough. Daughter is hospitalized with covid 19. Here for testing. Past Medical History / Immunizations Past Medical History: Diagnosis Date Arthritis Chronic kidney disease stage 3 HLD (hyperlipidemia) HTN (hypertension) Past Surgical History Past Surgical History: Procedure Laterality Date CHOLECYSTECTOMY ENDOMETRIAL ABLATION RADICAL HYSTERECTOMY SPINE SURGERY Allergies No Known Allergies Review of Systems Review of Systems Physical Exam BP 122/80 | Pulse 67 | Temp 36.1 C (97 F) (Oral) | Resp 18 | Ht 5' 2" (1.575 m) | Wt 158 lb(71.7 kg) | SpO2 98% | BMI 28.90 kg/m Physical Exam Labs No results found for this or any previous visit (from the past 24 hour(s)). No results found. Orders and Treatments Orders Placed This Encounter Procedures COVID-19 (PCR MOLECULAR TESTING) Outpatient Encounter Medications as of 04/16/2020 Medication Sig tiZANidine 4 mg tablet Take 1 tablet by mouth every 8 (eight) hours as needed (muscle pain or spasm). acetaminophen-codeine (TYLENOL-CODEINE #3) 300-30 mg tablet Take 1 tablet by mouth every 6 (six)hours as needed for Pain (scale 7-10). Diclofenac Sodium (VOLTAREN) 1 % gel Apply to area(s) 4 (four) times daily as needed for Pain (scale 1-3). methylPREDNISolone 4 mg tablets Take by mouth SEE-INSTRUCTIONS. follow package directions cyclobenzaprine 5 mg tablet Take 1 tablet by mouth 3 (three) times daily. nebivolol (BYSTOLIC) 5 mg tablet Bystolic 5 mg tablet meclizine 25 mg tablet Take 1 tablet by mouth 3 (three) times daily as needed for Dizziness. amitriptyline 25 mg tablet 1-2 tab at bedtime to relax muscles. amLODIPine 5 mg tablet Take 5 mg by mouth daily. No results found for this visit on 04/16/20. Diagnosis Patient well appearing, NAD noted on exam Patient speaking in complete sentences on exam. Physical exam otherwise unremarkable Vital signs DAWNA Niño was seen today for cough and exposure. Diagnoses and all orders for this visit: Exposure to Covid-19 Virus - COVID-19 (PCR MOLECULAR TESTING); Future - COVID-19 (PCR MOLECULAR TESTING) Cough - COVID-19 (PCR MOLECULAR TESTING); Future - COVID-19 (PCR MOLECULAR TESTING) Disposition & Follow Up - Discussed likely viral diagnosis and treatment plan with pt. - pt advised on frequent effective handwashing - pt advised to increase fluid intake - advised to have the pt take OTC to treat symptoms. - Pt advised to administer Tylenol as per label recommendation as needed for pain or fever - AVS and Written/handout materials appropriate to problem and teaching provided. - advised to go to the nearest Emergency Department sooner for any new, worsening, persistent, or concerning symptoms - Patient verbalized understanding of all instructions EDUCATION: Handouts given: "What to do if you are sick with COVID-19" CDC information guide reviewed with the patient and handout given to patient Education given to self quarantine until results are back. Will notify patient with results. Patient states understanding and all questions answered. Plan of care, goals and medications discussed with patient. Patient voices understanding. Barriers to care: none Ability to manage care: good This visit did not involve counseling and coordination that comprised more than 50% of the visit time. Adam Mejia PA-C 04/16/2020 11:05 AM Monse Casillas RN - 04/16/2020 2:00 PM CDT Renay Quinones is a 69 year old female Chief Complaint Patient presents with Cough x 3 days Exposure covid 19 Vitals: 04/16/20 1044 BP: 122/80 Pulse: 67 Resp: 18 Temp: 36.1 C (97 F) TempSrc: Oral SpO2: 98% Weight: 158 lb (71.7 kg) Height: 5' 2" (1.575 m) [facility]/pharmacy #[id number] - [place], [place] - [facility] [address] AT [facility] Patient AAOx4 and in no acute distress. All Vitals taken, allergies and all medications reviewed, fall risk assessed. Pain level 0. documented in this encounter Plan of Treatment Name Type Priority Associated Diagnoses Order S chedule COVID-19 (PCR MOLECULAR LAB Routine Exposure to Covid -19 Expected: 04/16/2020, TESTING) Virus Expires: 04/16/2021 Cough Health Maintenance Due Date Last Done Comments [...] Results Not on filedocumented in this encounter Visit Diagnoses Diagnosis Viral upper respiratory tract infection - Primary Acute upper respiratory infections of un specified site Exposure to Covid-19 Virus Cough documented in this encounter Insurance Payer Benefit Plan / Subscriber ID Effective Dates Phone Addre ss Type Group MEDICARE MEDICARE PART xxxxxxxxxxx 2017-Daniel [phone] Medicare A & [address] t [id number] [place] [address] [facility] [id number] 2020-Daniel I ndemnity t documented as of this encounter
--- OUTSIDE RECORDS SUMMARY | 2020-04-23 19:29 | XMS REPORT | Summary of Care ---
:1950 Author Organization [facility] Address [address] [place] [address] Care Team Providers Name Role Phone Guadalupe Smith Primary Care Provider Reason for Visit Reason Comments Shoulder Pain right Encounter Details Date Type Department Care Team Description 02/19/2020 Telemedicine Visit [facility] Lisa Bulmarojesusita Limon t-sided chest wall pain (Primary Dx); Pediatric and Adult MD Guadalupe Acute pain of right shoulder; Primary Care- [address] Neck pain on right side; [place], [place] Upper back pain on right aviva e [address] [facility] [address] , [address] [place], [place] [phone] [address] (Fax) [phone] Allergies No Known Allergiesdocumented as of this [...] Signs Not on filedocumented in this encounter Patient Instructions Patient InstructionsJose Gonzaelz MD - 02/19/2020 4:15 PM CDT Patient Education Shoulder Pain with Uncertain Cause Shoulder pain can have many causes. Pain often comes from the structures that surround the shoulder joint. These are the joint capsule, ligaments, tendons, muscles, and bursa. Pain can also come from cartilage in the joint. Cartilage can become worn out or injured. Its important to know whats causing your pain so the healthcare provider can use the correct treatment. But sometimes its difficult to find the exact cause of shoulder pain. You may need to see a specialist (orthopedist). You mayalso need special tests such as a CT scan or MRI. The provider may need to use special tools to lookinside the joint (arthroscopy). Shoulder pain can be treated with a sling or a device that keeps your shoulder from moving. You can take an anti-inflammatory medicine such as ibuprofen to ease pain. You may need to do special shoulder exercises. Follow up with a specialist if the pain is severe or doesnt go away after a few weeks. Home care Follow these tips when caring for yourself at home: If a sling was given to you, leave it in place for the time advised by your healthcare provider. If you arent sure how long to wear it, ask for advice. If the sling becomes loose, adjust it so that your forearm is level with the ground. Your shoulder should feel well supported. Put an ice pack on the injured area for 20 minutes every 1 to 2 hours the first day. You can makeyour own ice pack by putting ice cubes in a plastic bag. Wrap the bag in a thin towel. Continue withice packs 3 to 4 times a day for the next 2 days. Then use the pack as needed to ease pain and swelling. You may use acetaminophen or ibuprofen to control pain, unless another pain medicine was prescribed.If you have chronic liver or kidney disease, talk with your healthcare provider before using these medicines. Also talk with your provider if youve ever had a stomach ulcer or digestive bleeding. Shoulder pain may seem worse at night, when there is less to distract you from the pain. If you sleep on your side, try to keep weight off your painful shoulder. Propping pillows behind you may stopyou from rolling over onto that shoulder during sleep. Shoulder and elbow joints can become stiff if left in a sling for too long. You should start range of motion exercises about 7 to 10 days after the injury. Talk with your provider to find out what type of exercises to do and how soon to start. You can take the sling off to shower or bathe. Follow-up care Follow up with your healthcare provider if you dont start to get better in the next 5 days. When to seek medical advice Call your healthcare provider right awayif any of these occur: Pain or swelling gets worseor continues for more than a few days Your hand or fingers become cold, blue, numb, or tingly Large amount of bruising on your shoulder or upper arm Trouble moving your hand or fingers Weakness in your hand or fingers Your shoulder becomes stiff It feels like your shoulder is popping out You are less able to do your daily activities [employer] last reviewed this educational content on 10/24/201919999535-0410 [employer]. [address] [place] [address]. All rights reserved. This information is not intended as a substitute for professional medical care. Always follow your healthcare professional's instructions. documented in this encounter Progress Notes Jose Gonzalez MD - 02/19/2020 4:15 PM CDT TELEHEALTH NOTE Verbal consent obtained from Patient: Renay Quinones due to the COVID- 19 pandemic for telehealth services provided below. Communication with patient was conducted via Video Call. Location of Patient: Home Location of Provider: Office Date of Service: 02/19/2020 CC: Chief Complaint Patient presents with Shoulder Pain right HPI Renay Quinones is a 69 year old female who participated in a Telehealth visit today for shoulder pain. Shoulder Pain The pain is present in the right shoulder, neck and back (right upper back, neck, chest, and right shoulder). This is a new problem. The current episode started today. History of extremity trauma: The patient started spontaneously upon awakening today, there has been no known trauma or strain. The problem occurs constantly. The problem has been gradually worsening. The quality of the pain is described as aching. The pain is at a severity of 10/10. The pain is severe. Associated symptoms include a limited range of motion. Pertinent negatives include no fever, joint locking, joint swelling, numbness,stiffness or tingling. The symptoms are aggravated by activity. She has tried acetaminophen and OTC pain meds for the symptoms. The treatment provided no relief. Her past medical history is significantfor osteoarthritis. No Known Allergies Current Outpatient Medications on File Prior to Visit Medication Sig Dispense Refill acetaminophen-codeine (TYLENOL-CODEINE #3) 300-30 mg tablet Take 1 tablet by mouth every 6 (six)hours as needed for Pain (scale 7-10). 12 tablet 0 Diclofenac Sodium (VOLTAREN) 1 % gel Apply to area(s) 4 (four) times daily as needed for Pain (scale 1-3). 1 Tube 0 methylPREDNISolone 4 mg tablets Take by mouth SEE-INSTRUCTIONS. follow package directions 21 Each 0 cyclobenzaprine 5 mg tablet Take 1 tablet by mouth 3 (three) times daily. 21 tablet 0 nebivolol (BYSTOLIC) 5 mg tablet Bystolic 5 mg tablet meclizine 25 mg tablet Take 1 tablet by mouth 3 (three) times daily as needed for Dizziness. 30 tablet 0 amitriptyline 25 mg tablet 1-2 tab at bedtime to relax muscles. 60 tablet 1 amLODIPine 5 mg tablet Take 5 mg by mouth daily. No current facility-administered medications on file prior to visit. Past Medical History: Diagnosis Date Arthritis Chronic kidney disease stage 3 HLD (hyperlipidemia) HTN (hypertension) Past Surgical History: Procedure Laterality Date CHOLECYSTECTOMY ENDOMETRIAL ABLATION RADICAL HYSTERECTOMY SPINE SURGERY Family History Problem Relation Age of Onset Hypertension Mother High cholesterol Mother No Significant Medical Problems Father Heart Brother CABG @ 63 Heart Sister Social History Socioeconomic History Marital status: Spouse name: Not on file Number of children: Not on file Years of education: Not on file Highest education level: Not on file Occupational History Not on file Social Needs Financial resource strain: Not on file Food insecurity: Worry: Not on file Inability: Not on file Transportation needs: Medical: Not on file Non-medical: Not on file Tobacco Use Smoking status: Never Smoker Smokeless tobacco: Never Used Substance and Sexual Activity Alcohol use: Yes Alcohol/week: 0.0 standard drinks Comment: rare Drug use: No Sexual activity: Not on file Lifestyle Physical activity: Days per week: Not on file Minutes per session: Not on file Stress: Not on file Relationships Social connections: Talks on phone: Not on file Gets together: Not on file Attends protestant service: Not on file Active member of club or organization: Not on file Attends meetings of clubs or organizations: Not on file Relationship status: Not on file Intimate partner violence: Fear of current or ex partner: Not on file Emotionally abused: Not on file Physically abused: Not on file Forced sexual activity: Not on file Other Topics Concern Not on file Social History Narrative Court guard Review of Systems Constitutional: Negative. Negative for fever. HENT: Negative. Eyes: Negative. Respiratory: Negative. Cardiovascular: Positive for chest pain. Gastrointestinal: Negative. Genitourinary: Negative. Musculoskeletal: Positive for arthralgias, back pain and neck pain. Negative for stiffness. Skin: Negative. Neurological: Negative. Negative for tingling and numbness. Psychiatric/Behavioral: Negative. Endocrine: Endocrine negative Vital signs Level of pain 10. Physical Exam Constitutional: She is oriented to person, place, and time. She appears well- developed and well-nourished. She appears distressed (grimacing in pain). Pulmonary/Chest: Effort normal. No stridor. No respiratory distress. She exhibits tenderness (right anterior chest wall). No audible adventitious breath sounds Musculoskeletal: Right shoulder: She exhibits decreased range of motion, tenderness and pain. She exhibits no deformity. Arms: Neurological: She is alert and oriented to person, place, and time. Skin: No rash noted. No pallor. Psychiatric: She has a normal mood and affect. Her speech is normal and behavior is normal. Judgmentand thought content normal. Cognition and memory are normal. LABS: CBC CMP WBC (10*3/uL) Date Value 09/06/2017 7.90 NA (mmol/L) Date Value 09/06/2017 141 RBC (10*6/uL) Date Value 09/06/2017 4.15 K (mmol/L) Date Value 09/06/2017 4.6 PLT (10*3/uL) Date Value 09/06/2017 418 (H) CALCIUM (mg/dL) Date Value 09/06/2017 9.3 HGB (g/dL) Date Value 09/06/2017 12.7 CL (mmol/L) Date Value 09/06/2017 107 HCT (%) Date Value 09/06/2017 37.6 BUN (mg/dL) Date Value 09/06/2017 26 (H) LIPID PANEL CREATININE (mg/dL) Date Value 09/06/2017 1.70 (H) CHOL (mg/dL) Date Value 08/27/2017 155 GLUCOSE (mg/dL) Date Value 09/06/2017 101 LDL CHOL (mg/dL) Date Value 08/27/2017 107 CO2 TOTAL (mmol/L) Date Value 09/06/2017 24 HDL (mg/dL) Date Value 08/27/2017 26 (L) ALBUMIN Date Value Ref Range Status 08/27/2017 3.5 3.5 - 5.0 g/dL Final TRIG (mg/dL) Date Value 08/27/2017 112 T PROTEIN Date Value Ref Range Status 08/27/2017 6.7 6.3 - 8.2 g/dL Final TSH TOTAL BILI Date Value Ref Range Status 08/27/2017 0.8 0.1 - 1.1 mg/dL Final TSH (mIU/L) Date Value 08/27/2017 2.15 No components found for: BILIUNCOM No results found for: BILICONJ ALT(SGPT) Date Value Ref Range Status 08/27/2017 48 9 - 51 U/L Final AST(SGOT) Date Value Ref Range Status 08/27/2017 34 13 - 40 U/L Final ALK PHOS Date Value Ref Range Status 08/27/2017 151 (H) 34 - 122 U/L Final ASSESSMENT/PLAN Diagnoses and all orders for this visit: ICD-10-CM ICD-9-CM 1. Right-sided chest wall pain R07.89 786.52 2. Acute pain of right shoulder M25.511 719.41 3. Neck pain on right side M54.2 723.1 4. Upper back pain on right side M54.9 724.5 Her symptoms could be due to severe cervical radiculopathy, costochondritis, shoulder bursitis and other musculoskeletal causes of pain, however the severity of her pain warrants evaluation at the ED right away to r/o pulmonary causes and even cardiac etiologies despite the pain being right-sided. I reiterated the importance of a ngvu-nl-puei visit so she can be assessed and treated properly and shevoiced understanding though she wouldn't agree to go right away. I sent an Rx for tizanidine for her to try if the ER/hospital provider determines that her pain is musculoskeletal in nature. I recommended that she activate 911 or she can allow a family member to drive her to the ED by POV if ambulance transport is refused. She isn't sure if she is going to the ER so report wasn't called. Orders: - tiZANidine 4 mg tablet; Take 1 tablet by mouth every 8 (eight) hours as needed (muscle pain orspasm). Plan of care, desired health behaviors, goals, Ddx, and any prescribed medications were discussed with the patient. Education resources and self- management tools were provided in the After Visit Summary (AVS) which is accessible through [employer]. A total of 25 minutes was spent on the Video Call, chart review, and coordination of care with specialists. Patient/guardian/family verbalized understanding and agrees to the plan of care. Barriers to care: None. Ability to manage care: Good. Advanced care planning (living will) information was not given/offered to the patient to review for discussion at a future visit. If applicable, the [place] [employer] database was accessed to review any controlled substance prescription claims data. If the patient is taking prescribed medications, the [employer] prescription claims data in [employer] was reviewed to assess patient compliance with the medication treatment plan. COVID-19 precautions given including frequent handwashing, social distancing, cleaning and disinfecting, indications for testing, etc. Follow-up: Return per ER/hospital discharge instructions. Return for routine care as scheduled or previously advised. Scribe Attestation Krystin Mcrae , am scribing for, and in the presence of, Jose Gonzalez MD who performed the services described here-in. Krystin Quinones, February 19, 2020, 4:10 PM Physician Attestation I, Jose Gonzalez MD, personally performed the services described in this documentation , as scribed by, Krystin Quinones in my presence and it is both accurate and complete. Jose Gonzalez MD February 19, 2020, 4:10 PM documented in this encounter Plan of Treatment Health [...] filedocumented in this encounter Visit Diagnoses Diagnosis Right-sided chest wall pain - Primary Painful respiration Acute pain of right shoulder Neck pain on right side Cervicalgia Upper back pain on right side Pain in thoracic spine documented in this encounter Insurance Payer Benefit Plan / Subscriber ID Effective Dates Phone Addre ss Type Group MEDICARE MEDICARE PART xxxxxxxxxxx 2017-Daniel [phone] [facility] Medicare A & B t 2 [id number] [place] [id number] documented as of this encounter
[2020-04-23] MEDS ORDERED: ALBUTEROL INHALER 60 PUFF/8 GM IH PRN (21:45)
[2020-04-23] MEDS ORDERED: ONDANSETRON 4 MG/2 ML VIAL IV PRN (21:45)
[2020-04-23] MEDS ORDERED: ACETAMINOPHEN 500 MG TAB PO PRN (21:45)
[2020-04-23] MEDS ORDERED: NA CHLORIDE 0.9% 1,000 ML IV SCH (22:00)
[2020-04-23] MEDS: CEFTRIAXONE/SWI 1gm 1 GM/10 ML SYR IV SCH (23:25)
[2020-04-23] MEDS: dexAMETHasone 10 MG/ML VIAL IV SCH (23:26)
[2020-04-23 23:53] LABS: Ferritin 1115.8 ng/mL (8-388)
[2020-04-24 02:09] VITALS: BMI 27.1
[2020-04-24 05:44] LABS: Absolute Lymphocytes (CBC) 0.5 K/uL (0.7-4.9); Basophils % 0.2 % (0-1.3); Hematocrit 38.9 % (36.0-45.0); Lymphocytes % 12.3 % (15.3-44.8); MPV 9.1 fL (7.6-11.3); RBC Red Blood Cell Count 4.32 M/uL (3.86-4.86)
[2020-04-24] MEDS: dexAMETHasone 10 MG/ML VIAL IV SCH ×2 (05:48→12:30)
[2020-04-24 05:49] LABS: Albumin 2.7 g/dL (3.4-5.0); Bilirubin Total 0.3 mg/dL (0.2-1.0); Magnesium 2.4 mg/dL (1.8-2.4); Potassium 4.2 mmol/L (3.5-5.1); Thyroid Stimulating Hormone 0.331 uIU/mL (0.360-3.740)
[2020-04-24 05:59] LABS: Protime INR 1.1
[2020-04-24] MEDS: CEFTRIAXONE/SWI 1gm 1 GM/10 ML SYR IV SCH (08:03)
[2020-04-24 08:08] VITALS: O2SAT 94
--- NOTE | 2020-04-24 08:51 | P.HP ---
Certification for Inpatient Patient admitted to: Inpatient With expected LOS: >2 Midnights Patient will require the following post-hospital care: None Practitioner: I am a practitioner with admitting privileges, knowledge of patient current condition, hospital course, and medical plan of care. Services: Services provided to patient in accordance with Admission requirements found in Title 42 Section 412.3 of the Code of Federal Regulations Patient History Date of Service: 04/23/20 Reason for admission: COVID-19 pneumonia History of Present Illness: Patient is a 69-year-old female who presents to the hospital with shortness of breath. Patient was found to be hypoxic. Patient's oxygen was 87% on room air. Patient's x-ray revealed bilateral infiltrates. Patient be admitted to the hospital for further evaluation. Will also check labs to monitor different indices for the severity of COVID-19. At this time will admit patient to the hospital for further evaluation. Allergies No Known Allergies Allergy (Unverified 08/21/17 20:08) Home Medications: Amlodipine [Norvasc*] 5 mg PO DAILY 04/24/20 Tizanidine [Zanaflex*] 4 mg PO Q8HR PRN 04/24/20 - Past Medical/Surgical History Has patient received pneumonia vaccine in the past: No Diabetic: No -: HTN -: Hyperlipidemia -: kidney disease -: herniated disc -: uterine ablation -: cholecstectomy - Family History Father Family History: Reviewed- Non-Contributory - Social History Smoking Status: Never smoker Alcohol use: No CD- Drugs: No Caffeine use: Yes Place of Residence: Home Review of Systems 10-point ROS is otherwise unremarkable Physical Examination - Vital Signs Temperature: 97.8 F Blood Pressure: 112/70 Pulse: 81 Respirations: 16 Pulse Ox (%): 95 - Physical Exam General: Alert, In no apparent distress, Oriented x3 HEENT: Atraumatic, PERRLA, Mucous membr. moist/pink, EOMI, Sclerae nonicteric Neck: Supple, 2+ carotid pulse no bruit, No LAD, Without JVD or thyroid abnormality Respiratory: Clear to auscultation bilaterally, Normal air movement Cardiovascular: Regular rate/rhythm, Normal S1 S2, No murmurs Gastrointestinal: Normal bowel sounds, Soft and benign, Non-distended, No tenderness Musculoskeletal: No clubbing, No swelling, No tenderness Integumentary: No rashes Neurological: Normal gait, Normal speech, Normal strength at 5/5 x4 extr, Normal tone, Sensation intact, Cranial nerves 3-12 intact, Normal affect Lymphatics: No axilla or inguinal lymphadenopathy - Studies Laboratory Data (last 24 hrs) 04/23/20 18:23: PT 13.5 H, INR 1.15, APTT 32.7 04/23/20 18:23: WBC 5.9, Hgb 14.9, Hct 44.7, Plt Count 196 04/23/20 18:23: Sodium 139, Potassium 3.9, BUN 30 H, Creatinine 2.41 H, Glucose 144 H, Total Bilirubin 0.6, AST 47 H, ALT 34, Alkaline Phosphatase 84, Amylase 127 H, Lipase 409 H Microbiology Data (last 24 hrs): 04/23/20 19:19 Nasopharnyx Influenza Type A Antigen Screen - Final 04/23/20 19:19 Nasopharnyx Influenza Type B Antigen Screen - Final Assessment & Plan - Problems (Diagnosis) (1) COVID-19 Current Visit: Yes Status: Acute (2) Hypoxemia Current Visit: Yes Status: Acute (3) Bilateral pulmonary infiltrates on chest x-ray Current Visit: Yes Status: Acute (4) Elevated ferritin Current Visit: Yes Status: Acute (5) Elevated C-reactive protein (CRP) Current Visit: Yes Status: Acute (6) Elevated LDH Current Visit: Yes Status: Acute (7) Acute renal insufficiency Current Visit: Yes Status: Acute - Plan 1. Continue with IV dexamethasone and cover with antibiotic therapy; droplet precautions 2. Awaiting sputum and blood culture 3. Repeat chest x-ray if symptoms are worsening 4. Monitor labs closely 5. Appreciate pulmonary consultation 6. Continue with inhaler therapy 7. O2 per protocol; zinc and vitamin-C as tolerated 8. Continue with gentle hydration 9. Repeat labs including CBC and renal function in a.m. 10. GI and DVT prophylaxis Discharge Plan: Home Plan to discharge in: Greater than 2 days - Advance Directives Does patient have a Living Will: No Does patient have a Durable POA for Healthcare: No - Code Status/Comfort Care Code Status Assessed: Yes Code Status: Full Code Critical Care: No Time Spent Managing PTS Care (In Minutes): 45
--- NOTE | 2020-04-24 08:58 | P.PN ---
Subjective Date of Service: 04/24/20 Patient's symptom gradually improving. Oxygenation and is improved. Out of bed and ambulate and monitor oxygen level. May be able to discharge later today if she continues to improve. Lab indices are worrisome but her overall picture seems to be stable. Review of Systems 10-point ROS is otherwise unremarkable Physical Examination - Vital Signs Temperature: 97.8 F Blood Pressure: 112/70 Pulse: 81 Respirations: 16 Pulse Ox (%): 95 - Physical Exam General: Alert, In no apparent distress, Oriented x3 Respiratory: Diminished, Rhonchi/gurgles Cardiovascular: Regular rate/rhythm, Normal S1 S2, No murmurs Gastrointestinal: Normal bowel sounds, Soft and benign, Non-distended, No tenderness Musculoskeletal: No clubbing, No swelling, No tenderness Neurological: Normal tone, Sensation intact, Cranial nerves 3-12 intact Lymphatics: No axilla or inguinal lymphadenopathy - Studies Laboratory Data (last 24 hrs) 04/23/20 18:23: PT 13.5 H, INR 1.15, APTT 32.7 04/23/20 18:23: WBC 5.9, Hgb 14.9, Hct 44.7, Plt Count 196 04/23/20 18:23: Sodium 139, Potassium 3.9, BUN 30 H, Creatinine 2.41 H, Glucose 144 H, Total Bilirubin 0.6, AST 47 H, ALT 34, Alkaline Phosphatase 84, Amylase 127 H, Lipase 409 H Microbiology Data (last 24 hrs): 04/23/20 19:19 Nasopharnyx Influenza Type A Antigen Screen - Final 04/23/20 19:19 Nasopharnyx Influenza Type B Antigen Screen - Final Medications List Reviewed: Yes Assessment & Plan - Problems (Diagnosis) (1) COVID-19 Current Visit: Yes Status: Acute (2) Hypoxemia Current Visit: Yes Status: Acute (3) Bilateral pulmonary infiltrates on chest x-ray Current Visit: Yes Status: Acute (4) Elevated ferritin Current Visit: Yes Status: Acute (5) Elevated C-reactive protein (CRP) Current Visit: Yes Status: Acute (6) Elevated LDH Current Visit: Yes Status: Acute (7) Acute renal insufficiency Current Visit: Yes Status: Acute - Plan Overall clinical symptoms have improved; continue with current plan of care 1. Continue with IV dexamethasone and cover with antibiotic therapy; droplet precautions 2. Awaiting sputum and blood culture 3. Repeat chest x-ray if symptoms are worsening 4. Monitor labs closely 5. Appreciate pulmonary consultation 6. Continue with inhaler therapy 7. O2 per protocol; zinc and vitamin-C as tolerated 8. GI and DVT prophylaxis Discharge Plan: Home Plan to discharge in: Greater than 2 days - Advance Directives Does patient have a Living Will: No Does patient have a Durable POA for Healthcare: No - Code Status/Comfort Care Code Status: Full Code Critical Care: No Time Spent Managing PTS Care (In Minutes): 30
[2020-04-24] MEDS ORDERED: AZITHROMYCIN IV 500 MG in NA CHLORIDE 0.9% 250 ML IVPB SCH (09:00)
[2020-04-24] MEDS ORDERED: PNEUMOCOCCAL VACCINE 0.5 ML IMVAC ONE (09:00)
[2020-04-24] MEDS ORDERED: HEPARIN 5000 UNIT/ML 1 ML VIAL SQ SCH (09:00)
[2020-04-24] MEDS ORDERED: CEFTRIAXONE 1 GM/NS 50 ML 1 GM/50 ML BAG IV SCH (09:00)
--- NOTE | 2020-04-24 12:33 | P.CNS ---
Date of Consult: 04/24/20 Reason for Consult: Possible meyer virus pneumonia Chief Complaint: COVID-19 pneumonia History of Present Illness: Patient is 69 years of age present to the hospital was short of breath hypoxemia chest x-ray showed bilateral pneumonia was admitted for observation she is currently doing well she is off oxygen no new complaints Allergies No Known Allergies Allergy (Unverified 08/21/17 20:08) Home Medications: Amlodipine [Norvasc*] 5 mg PO DAILY 04/24/20 Prednisone [Sterapred Ds] 10 mg PO BID #20 tab.ds.pk 04/24/20 Tizanidine [Zanaflex*] 4 mg PO Q8HR PRN 04/24/20 - Past Medical/Surgical History Diabetic: No -: HTN -: Hyperlipidemia -: kidney disease -: herniated disc -: uterine ablation -: cholecstectomy - Family History Father Family History: Reviewed- Non-Contributory - Social History Alcohol use: No CD- Drugs: No Caffeine use: Yes Place of Residence: Home Review of Systems is unable to be obtained Physical Examination Temp Pulse Resp BP Pulse Ox 97.8 F 76 18 128/79 94 04/24/20 08:58 04/24/20 11:00 04/24/20 11:00 04/24/20 11:00 04/24/20 11:00 General: Other (Deferred) Laboratory Data (last 24 hrs) 04/23/20 18:23: PT 13.5 H, INR 1.15, APTT 32.7 04/23/20 18:23: WBC 5.9, Hgb 14.9, Hct 44.7, Plt Count 196 04/23/20 18:23: Sodium 139, Potassium 3.9, BUN 30 H, Creatinine 2.41 H, Glucose 144 H, Total Bilirubin 0.6, AST 47 H, ALT 34, Alkaline Phosphatase 84, Amylase 127 H, Lipase 409 H - Problems (1) COVID-19 Current Visit: Yes Status: Acute Plan: Patient is 69 years of age admitted with shortness of breath. She is covid positive minimal interstitial changes hemodynamically stable oxygenation satisfactory patient can be discharged home on low-dose prednisone and mg twice a day for 7 days
[2020-04-24] MEDS ORDERED: TIZANIDINE 4 MG TABLET PO PRN (12:55)
[2020-04-24 13:38] VITALS: BP 132/76; TEMP 97.6
--- NOTE | 2020-04-24 19:18 | P.DS ---
Discharge Date: 04/24/20 Disposition: ROUTINE DISCHARGE Discharge Condition: FAIR Reason for Admission: COVID-19 pneumonia - Problems (1) COVID-19 Status: Acute (2) Hypoxemia Status: Acute (3) Bilateral pulmonary infiltrates on chest x-ray Status: Acute (4) Elevated ferritin Status: Acute (5) Elevated C-reactive protein (CRP) Status: Acute (6) Elevated LDH Status: Acute (7) Acute renal insufficiency Status: Acute Brief History of Present Illness: Patient is a 69-year-old female who presents to the hospital with shortness of breath. Patient was found to be hypoxic. Patient's oxygen was 87% on room air. Patient's x-ray revealed bilateral infiltrates. Patient be admitted to the hospital for further evaluation. Will also check labs to monitor different indices for the severity of COVID-19. At this time will admit patient to the hospital for further evaluation. Vital Signs/Physical Exam: Temp Pulse Resp BP Pulse Ox 97.6 F 73 24 H 132/76 93 04/24/20 12:00 04/24/20 12:00 04/24/20 12:00 04/24/20 12:00 04/24/20 12:00 Laboratory Data at Discharge: WBC 3.7 K/uL (4.3-10.9) L D 04/24/20 05:00 Hgb 13.1 g/dL (12.0-15.0) 04/24/20 05:00 Hct 38.9 % (36.0-45.0) 04/24/20 05:00 Plt Count 187 K/uL (152-406) 04/24/20 05:00 PT 13.0 SECONDS (9.5-12.5) H 04/24/20 05:00 INR 1.10 04/24/20 05:00 APTT 30.6 SECONDS (24.3-36.9) 04/24/20 05:00 Sodium 141 mmol/L (136-145) 04/24/20 05:00 Potassium 4.2 mmol/L (3.5-5.1) 04/24/20 05:00 BUN 32 mg/dL (7-18) H 04/24/20 05:00 Creatinine 2.12 mg/dL (0.55-1.3) H 04/24/20 05:00 Glucose 165 mg/dL (74-106) H 04/24/20 05:00 Phosphorus 4.0 mg/dL (2.5-4.9) 04/24/20 05:00 Magnesium 2.4 mg/dL (1.8-2.4) 04/24/20 05:00 Total Bilirubin 0.3 mg/dL (0.2-1.0) 04/24/20 05:00 AST 38 U/L (15-37) H 04/24/20 05:00 ALT 35 U/L (12-78) 04/24/20 05:00 Alkaline Phosphatase 69 U/L (45-117) 04/24/20 05:00 Triglycerides 91 mg/dL (<150) 04/24/20 05:00 Cholesterol 131 mg/dL (<200) 04/24/20 05:00 HDL Cholesterol 39 mg/dL (40-60) L 04/24/20 05:00 Cholesterol/HDL Ratio 3.36 04/24/20 05:00 Amylase 127 U/L (25-115) H 04/23/20 18:23 Lipase 409 U/L (73-393) H 04/23/20 18:23 Home Medications: Amlodipine [Norvasc*] 5 mg PO DAILY 04/24/20 Prednisone [Sterapred Ds] 10 mg PO BID #20 tab.ds.pk 04/24/20 Tizanidine [Zanaflex*] 4 mg PO Q8HR PRN 04/24/20 New Medications: Prednisone [Sterapred Ds] 10 mg PO BID #20 tab.ds.pk Patient Discharge Instructions: 1. Follow up with PCP in one week. 2. Provide COVID education and guidelines. 3. Patient to continue with steroid taper as directed. 4. Follow up with Pulmonary in one week. Diet: AHA Activity: Ad jesenia Followup: Harshad Mccormick MD [ACTIVE - CAN ADMIT] -
[2020-04-24] MEDS ORDERED: ENSURE HIGH PROTEIN 237 ML CAN PO SCH (21:00)
--- NOTE | 2020-04-25 06:46 | EKG ---
Test Date: 2020-04-23 Test Time: 17:53:20 [employer]: SIERRA MEASUREMENT RESULTS: Intervals: Rate: 129 AR: 134 QRSD: 66 QT: 278 QTc: 407 [place]: P: 26 AR: 134 QRS: 78 T: 34 INTERPRETIVE STATEMENTS: Sinus tachycardia Otherwise normal ECG Compared to ECG 08/21/2017 17:41:19 No significant changes Electronically Signed On 04-25-20 06:45:54 CDT by Andrew Ashraf
[2020-04-25] MEDS ORDERED: AMLODIPINE 5 MG TAB PO SCH (09:00)
== END 2020-04-24 13:44 | disposition home or self-care (01) | DRG 177 ==
LOC: ER 17:17 → ERHOLD 21:46 → 3RD-ICU 22:45
PROVIDERS: ADMIT Hospitalist; ATTEND Hospitalist
PROC: 8E0ZXY6 Isolation (ICD-10-PCS; principal; 2020-04-23)
DX: U07.1 COVID-19 (principal); J12.89 Other viral pneumonia; I10 Essential (primary) hypertension; E78.5 Hyperlipidemia, unspecified; N28.9 Disorder of kidney and ureter, unspecified; R91.8 Other nonspecific abnormal finding of lung field; R79.82 Elevated C-reactive protein (CRP); R74.0 Nonspecific elevation of levels of transaminase and lactic acid dehydrogenase [LDH]; R09.02 Hypoxemia; Z90.49 Acquired absence of other specified parts of digestive tract; Z79.899 Other long term (current) drug therapy
CPT/HCPCS: 36415; 71045; 80048; 80053; 80061; 80076; 82150; 82550; 82553; 82728; 83605; 83615; 83690; 83735; 83880; 84100; 84145; 84439; 84443; 84484; 85025; 85379; 85610; 85730; 86140; 87040; 87804; 93005; 94760; 96361; 96365; 96375; 99285; J0456; J0696; J1100; J1644; J7030

== ENCOUNTER 2020-04-28 12:53 | Observation (INO) | payer OTHER ==
[2020-04-28] MEDS ORDERED: NA CHLORIDE 0.9% 1,000 ML ONE (13:31)
--- NOTE | 2020-04-28 14:11 | RAD REPORT ---
EXAM DESCRIPTION: RAD - Chest Single View - 04/28/2020 1:48 pm CLINICAL HISTORY: Cough;Dyspnea, positive COVID test April 17 COMPARISON: April 23, 2020 TECHNIQUE: AP portable chest image was obtained 04/28/2020 1:48 pm . FINDINGS: Lung volumes are relatively low which accentuates vasculature. Hazy ground-glass opacifica tion in the mid right lung field remains. Hazy left base opacification is also present. No dramatic c hange from the April 23 imaging. Heart and vasculature are normal. No measurable pleural effusion and no pneumothorax. No acute bony abnormality seen. No acute aortic findings suspected. IMPRESSION: Hazy lung parenchymal opacification similar to the April 23 imaging. Given the history of positive COVID-19 test and hazy ground-glass opacification, COVID-19 pneumonia i s suspected.
--- NOTE | 2020-04-28 14:17 | ER ---
Nurse's Notes [facility] Name: Renay Quinones Age: 69 yrs Sex: Female : 1950 Arrival Date: 04/28/2020 Time: 12:56 Bed 5 Private MD: Diagnosis: Dyspnea;SARS-associated coronavirus as the cause of diseases classified elsewhere;Pneumonia, unspecified organism-bilaterial Presentation: 04/28 13:02 Chief complaint: Patient states: SOB x 2 days. Pt was discharged from here last week sv and was COVID + tested on 04/17/20. Coronavirus screen: Proceed with normal triage. Patient denies a cough. Patient denies shortness of breath or difficulty breathing. Patient denies measured and/or subjective temperature greater than 100.4F prior to today's visit. Patient denies travel on a cruise ship or to a country the [facility] currently lists as an affected area. Patient denies contact with known and/or suspected case of COVID-19. Ebola Screen: No symptoms or risks identified at this time. Risk Assessment: Do you want to hurt yourself or someone else? Patient reports no desire to harm self or others. Onset of symptoms was April 26, 2020. 13:02 Method Of Arrival: Ambulatory sv 13:02 Acuity: FREDI 2 sv 13:03 Initial Sepsis Screen: Does the patient meet any 2 criteria? RR > 20 per min. HR > 90 sv bpm. Yes Does the patient have a suspected source of infection? No. Patient's initial sepsis screen is negative. Historical: - Allergies: 13:03 NKA; sv - Home Meds: 14:00 amlodipine 5 mg tab 1 tab once daily [Active]; carvedilol 6.25 mg Oral tab 1 tab 2 hb times per day [Active]; diclofenac sodium 3 % Topical gel [Active]; lisinopril 10 mg Oral tab 1 tab once daily [Active]; simvastatin 40 mg Oral tab 1 tab once daily [Active]; - PMHx: 13:03 Hyperlipidemia; Hypertension; kidney disease; sv - PSHx: 13:03 Cholecystectomy; uterine ablation; herniated disc; sv - Immunization history:: Adult Immunizations up to date. - Family history:: not pertinent. - Social history:: Smoking status: Patient denies any tobacco usage or history of. Screenin:56 Abuse screen: Denies threats or abuse. Denies injuries from another. Nutritional jl7 screening: No deficits noted. Tuberculosis screening: No symptoms or risk factors identified. Fall Risk IV access (20 points). Total Taylor Fall Scale indicates No Risk (0-24 pts). Assessment: 13:15 General: Appears ill, Behavior is calm, cooperative. Pain: Denies pain. Neuro: Level of hb Consciousness is awake, alert, obeys commands, Oriented to person, place, time, situation. Cardiovascular: Capillary refill < 3 seconds Patient's skin is warm and dry. Respiratory: Airway is patent Respiratory effort is labored, Respiratory pattern is tachypnea. GI: No signs and/or symptoms were reported involving the gastrointestinal system. : No signs and/or symptoms were reported regarding the genitourinary system. EENT: No signs and/or symptoms were reported regarding the EENT system. Derm: Skin is pink, warm \T\ dry. Musculoskeletal: No signs and/or symptoms reported regarding the musculoskeletal system. 14:00 Reassessment: No changes from previously documented assessment. Patient and/or family hb updated on plan of care and expected duration. Pain level reassessed. 15:00 Reassessment: Patient and/or family updated on plan of care and expected duration. Pain hb level reassessed. VSS. Awaiting room assignment at this time. 16:00 Reassessment: No changes from previously documented assessment. Admission ordered, hb awaiting room assignment at this time. 16:50 Reassessment: Pt up to bedside commode with assistance, breathing became labored and hb SpO2 dropped to upper 80s,improved to >95% after placed on 2LNC. Awaiting room assignment at this time. Vital Signs: 13:03 BP 137 / 87; Pulse 112; Resp 34; Temp 97.2; Pulse Ox 95% on R/A; Weight 62.6 kg; Height sv 5 ft. 2 in. (157.48 cm); 14:00 BP 138 / 82; Pulse 74; Resp 24 S; Pulse Ox 97% on R/A; jl7 14:30 BP 137 / 81; Pulse 71; Resp 27; Pulse Ox 100% ; jl7 15:00 BP 138 / 81; Pulse 66; Resp 26 S; Pulse Ox 98% on R/A; jl7 15:30 BP 146 / 80; Pulse 68; Resp 27; Pulse Ox 98% ; jl7 16:00 BP 135 / 81; Pulse 70; Resp 25; Pulse Ox 96% ; jl7 16:30 BP 136 / 85; Pulse 67; Resp 25 S; Pulse Ox 97% on R/A; jl7 16:45 Pulse Ox 87% on R/A; hb 16:52 Pulse Ox 96% on 2 lpm NC; hb 13:03 Body Mass Index 25.24 (62.60 kg, 157.48 cm) sv ED Course: 12:56 Patient arrived in ED. as 13:02 Arm band placed on. sv 13:03 Triage completed. sv 13:05 Patient has correct armband on for positive identification. Placed in gown. Bed in low jl7 position. Call light in reach. Side rails up X2. campus monitor on. Pulse ox on. NIBP on. Warm blanket given. 13:08 Branden Torres MD is Attending Physician. milla 13:48 XRAY Chest (1 view) In Process Unspecified. EDMS 14:00 Inserted saline lock: 20 gauge in right antecubital area, using aseptic technique. hb Blood collected. 14:15 Ko Kearns DO is Hospitalizing Provider. [facility] 15:16 Ramonita Perla, SEBASTIÁN is Primary Nurse. iw 16:54 Urine collected: clean catch specimen, clear. dh3 17:30 No provider procedures requiring assistance completed. iw 17:37 lactate sepsis drawn by nc and sent to lab. dh3 17:50 Patient admitted, IV remains in place. iw Administered Medications: 14:00 Drug: NS 0.9% 1000 ml Route: IV; Rate: 125 ml/hr; Site: right antecubital; hb 15:31 Drug: Decadron - Dexamethasone 10 mg Route: IVP; Site: right antecubital; hb 15:31 Drug: Rocephin 1 grams Route: IV; Rate: per protocol; Site: right antecubital; hb 15:31 Drug: Lovenox 40 mg Route: Sub-Q; Site: abdomen; hb 16:34 Drug: Zithromax 500 mg Route: IVPB; Infused Over: 1 hrs; Site: right antecubital; jl7 Outcome: 14:15 Decision to Hospitalize by Provider. milla 17:50 Instructed on the need for admit. iw 17:56 Admitted to Med/surg iw 17:56 Condition: good 17:57 Patient left the ED. Signatures: Dispatcher [employer] EDViridiana Ash RN RN Branden Torres MD MD cha Martinez, Amelia as Williams, Irene, RN RN iw Baxter, Heather, RN RN hb Leal, Jahala, RN RN jl7 Madison Norman 3 Corrections: (The following items were deleted from the chart) 13:06 13:02 Chief complaint: Patient states: SOB x 2 days. [facility] 04/29 10:44 07 17:56 Discharged to home [facility]
--- NOTE | 2020-04-28 14:17 | EDPHYS ---
Physician Documentation [facility] Name: Renay Quinones Age: 69 yrs Sex: Female : 1950 Arrival Date: 04/28/2020 Time: 12:56 Bed 5 Private MD: ED Physician Branedn Torres HPI: 04/28 14:11 This 69 yrs old Female presents to ER via Ambulatory with complaints of milla Breathing Difficulty. 14:11 The patient has shortness of breath at rest, with light activity. Onset: The milla symptoms/episode began/occurred 3 day(s) ago. Duration: The symptoms are continuous, and are steadily getting worse. The patient's shortness of breath is aggravated by coughing, supine position, walking, is alleviated by rest, sitting up, application of supplemental oxygen. Associated signs and symptoms: Pertinent positives: non-productive cough. Severity of symptoms: At their worst the symptoms were moderate in the emergency department the symptoms are unchanged. The patient has experienced similar episodes in the past, a few times. Historical: - Allergies: 13:03 NKA; sv - Home Meds: 14:00 amlodipine 5 mg tab 1 tab once daily [Active]; carvedilol 6.25 mg Oral tab 1 tab 2 hb times per day [Active]; diclofenac sodium 3 % Topical gel [Active]; lisinopril 10 mg Oral tab 1 tab once daily [Active]; simvastatin 40 mg Oral tab 1 tab once daily [Active]; - PMHx: 13:03 Hyperlipidemia; Hypertension; kidney disease; sv - PSHx: 13:03 Cholecystectomy; uterine ablation; herniated disc; sv - Immunization history:: Adult Immunizations up to date. - Family history:: not pertinent. - Social history:: Smoking status: Patient denies any tobacco usage or history of. ROS: 14:11 Constitutional: Negative for fever, chills, and weight loss, Eyes: Negative for injury, milla pain, redness, and discharge, ENT: Negative for injury, pain, and discharge, Neck: Negative for injury, pain, and swelling, Cardiovascular: Negative for chest pain, palpitations, and edema, Abdomen/GI: Negative for abdominal pain, nausea, vomiting, diarrhea, and constipation, Back: Negative for injury and pain, : Negative for injury, bleeding, discharge, and swelling, MS/Extremity: Negative for injury and deformity, Skin: Negative for injury, rash, and discoloration, Neuro: Negative for headache, weakness, numbness, tingling, and seizure, Psych: Negative for depression, anxiety, suicide ideation, homicidal ideation, and hallucinations, Allergy/Immunology: Negative for hives, rash, and allergies, Endocrine: Negative for neck swelling, polydipsia, polyuria, polyphagia, and marked weight changes, Hematologic/Lymphatic: Negative for swollen nodes, abnormal bleeding, and unusual bruising. 14:11 Respiratory: Positive for cough, with no reported sputum. Exam: 14:11 Constitutional: This is a well developed, well nourished patient who is awake, alert, milla and in no acute distress. Head/Face: Normocephalic, atraumatic. Eyes: Pupils equal round and reactive to light, extra-ocular motions intact. Lids and lashes normal. Conjunctiva and sclera are non-icteric and not injected. Cornea within normal limits. Periorbital areas with no swelling, redness, or edema. ENT: Nares patent. No nasal discharge, no septal abnormalities noted. Tympanic membranes are normal and external auditory canals are clear. Oropharynx with no redness, swelling, or masses, exudates, or evidence of obstruction, uvula midline. Mucous membranes moist. Neck: Trachea midline, no thyromegaly or masses palpated, and no cervical lymphadenopathy. Supple, full range of motion without nuchal rigidity, or vertebral point tenderness. No Meningismus. Chest/axilla: Normal chest wall appearance and motion. Nontender with no deformity. No lesions are appreciated. Cardiovascular: Regular rate and rhythm with a normal S1 and S2. No gallops, murmurs, or rubs. Normal PMI, no JVD. No pulse deficits. Abdomen/GI: Soft, non-tender, with normal bowel sounds. No distension or tympany. No guarding or rebound. No evidence of tenderness throughout. Back: No spinal tenderness. No costovertebral tenderness. Full range of motion. Female : Normal external genitalia. Skin: Warm, dry with normal turgor. Normal color with no rashes, no lesions, and no evidence of cellulitis. MS/ Extremity: Pulses equal, no cyanosis. Neurovascular intact. Full, normal range of motion. Neuro: Awake and alert, GCS 15, oriented to person, place, time, and situation. Cranial nerves II-XII grossly intact. Motor strength 5/5 in all extremities. Sensory grossly intact. Cerebellar exam normal. Normal gait. Psych: Awake, alert, with orientation to person, place and time. Behavior, mood, and affect are within normal limits. 14:11 Respiratory: the patient does not display signs of respiratory distress, Respirations: normal, Breath sounds: rhonchi, wheezing: expiratory 14:16 ECG was reviewed by the Attending Physician. [facility] Vital Signs: 13:03 BP 137 / 87; Pulse 112; Resp 34; Temp 97.2; Pulse Ox 95% on R/A; Weight 62.6 kg; Height sv 5 ft. 2 in. (157.48 cm); 14:00 BP 138 / 82; Pulse 74; Resp 24 S; Pulse Ox 97% on R/A; jl7 14:30 BP 137 / 81; Pulse 71; Resp 27; Pulse Ox 100% ; jl7 15:00 BP 138 / 81; Pulse 66; Resp 26 S; Pulse Ox 98% on R/A; jl7 15:30 BP 146 / 80; Pulse 68; Resp 27; Pulse Ox 98% ; jl7 16:00 BP 135 / 81; Pulse 70; Resp 25; Pulse Ox 96% ; jl7 16:30 BP 136 / 85; Pulse 67; Resp 25 S; Pulse Ox 97% on R/A; jl7 16:45 Pulse Ox 87% on R/A; hb 16:52 Pulse Ox 96% on 2 lpm NC; hb 13:03 Body Mass Index 25.24 (62.60 kg, 157.48 cm) sv MDM: 13:08 Patient medically screened. [facility] 14:14 Data reviewed: vital signs, nurses notes, lab test result(s), EKG, radiologic studies, [facility] plain films. 14:17 Differential diagnosis: CHF exacerbation, Chronic Obstructive Pulmonary Disease milla pneumonia, pulmonary edema, Pulmonary Embolism reactive airway disease, Sepsis Unstable Angina. Antibiotic administration: Rocephin and Zithromax given. The patient's Wells Deep Vein Thrombosis Score was calculated as follows: Heart Rate >100 BPM (1.5 Pts) Total Score: 0-2 Pts- Low Risk. The patient's pulmonary embolism risk score was calculated as follows: the patients heart rate is greater than 100 beats per minute (1.5 Pts) Total Score: 0-2 points. This patient was found to be at low risk for a pulmonary embolism by using the Well's assessment criteria. Data interpreted: cardiac monitor: rate is 112 beats/min, rhythm is regular, Pulse oximetry: on is 95 %. ED course: dr wynn to admit, tele full, covid positive 04/17/20. 04/28 13:09 Order name: Basic Metabolic Panel; Complete Time: 15:20 [facility] 04/28 13:09 Order name: CBC with Diff [facility] 04/28 13:09 Order name: LFT's; Complete Time: 15:20 [facility] 04/28 13:09 Order name: Magnesium; Complete Time: 15:20 [facility] 04/28 13:09 Order name: NT PRO-BNP; Complete Time: 15:20 [facility] 04/28 13:09 Order name: Troponin (emerg Dept Use Only); Complete Time: 15:20 [facility] 04/28 13:15 Order name: Influenza Screen (a \T\ B); Complete Time: 15:20 [facility] 04/28 13:15 Order name: COVID-19 [facility] 04/28 13:15 Order name: Blood Culture Adult (2) [facility] 04/28 13:15 Order name: Lactate; Complete Time: 15:20 [facility] 04/28 13:15 Order name: Procalcitonin [facility] 04/28 13:15 Order name: Urine Culture [facility] 04/28 14:42 Order name: CBC Smear Scan EDLA 04/28 16:53 Order name: Urine Dipstick--Ancillary (enter results) id 04/28 13:09 Order name: XRAY Chest (1 view); Complete Time: 14:44 [facility] 04/28 13:09 Order name: EKG; Complete Time: 13:10 [facility] 04/28 13:09 Order name: Cardiac monitoring; Complete Time: 14:23 [facility] 04/28 13:09 Order name: EKG - Nurse/Tech; Complete Time: 14:23 [facility] 04/28 13:09 Order name: IV Saline Lock; Complete Time: 14:23 [facility] 04/28 13:09 Order name: Labs collected and sent; Complete Time: 14:23 [facility] 04/28 13:09 Order name: O2 Per Protocol; Complete Time: 14:23 [facility] 04/28 13:09 Order name: O2 Sat Monitoring; Complete Time: 14:23 [facility] 04/28 17:07 Order name: Urine Dipstick-Ancillary [facility] 04/28 13:15 Order name: Urine Dipstick-Ancillary (obtain specimen); Complete Time: 16:54 milla EC:16 Rate is 80 beats/min. Rhythm is regular. QRS [place] is Normal. WA interval is normal. QRS milla interval is normal. QT interval is normal. No Q waves. T waves are Normal. No ST changes noted. Clinical impression: Normal ECG and No evidence of ischemia. Interpreted by me. Reviewed by me. Administered Medications: 14:00 Drug: NS 0.9% 1000 ml Route: IV; Rate: 125 ml/hr; Site: right antecubital; hb 15:31 Drug: Decadron - Dexamethasone 10 mg Route: IVP; Site: right antecubital; hb 15:31 Drug: Rocephin 1 grams Route: IV; Rate: per protocol; Site: right antecubital; hb 15:31 Drug: Lovenox 40 mg Route: Sub-Q; Site: abdomen; hb 16:34 Drug: Zithromax 500 mg Route: IVPB; Infused Over: 1 hrs; Site: right antecubital; jl7 Disposition: 04/28/20 14:15 Hospitalization ordered by Ko Wynn for Inpatient Admission. Preliminary diagnosis are Dyspnea, SARS-associated coronavirus as the cause of diseases classified elsewhere, Pneumonia, unspecified organism - bilaterial. - Bed requested for Telemetry/MedSurg (Inpatient). - Status is Inpatient Admission. iw - Condition is Fair. - Problem is new. - Symptoms have improved. Signatures: Dispatcher [employer] EDLA Fadia Ortiz RN RN kl Verde, Stephanie, RN RN sv Anderson, Corey, MD MD cha Williams, Irene, RN RN iw Baxter, Heather, RN RN hb Leal, Jahala, RN RN jl7 Corrections: (The following items were deleted from the chart) 14:44 14:15 Hospitalization Ordered by Ko Wynn DO for Inpatient Admission. Preliminary milla diagnosis is Dyspnea; SARS-associated coronavirus as the cause of diseases classified elsewhere. Bed requested for Telemetry/MedSurg (Inpatient). Status is Inpatient Admission. Condition is Fair. Problem is new. Symptoms have improved. milla 16:57 14:44 04/28/2020 14:15 Hospitalization Ordered by Ko Wynn DO for Inpatient kl Admission. Preliminary diagnosis is Dyspnea; SARS-associated coronavirus as the cause of diseases classified elsewhere; Pneumonia, unspecified organism - bilaterial. Bed requested for Telemetry/MedSurg (Inpatient). Status is Inpatient Admission. Condition is Fair. Problem is new. Symptoms have improved. [facility] 17:57 16:57 04/28/2020 14:15 Hospitalization Ordered by Ko Wynn DO for Inpatient iw Admission. Preliminary diagnosis is Dyspnea; SARS-associated coronavirus as the cause of diseases classified elsewhere; Pneumonia, unspecified organism - bilaterial. Bed requested for Telemetry/MedSurg (Inpatient). Status is Inpatient Admission. Condition is Fair. Problem is new. Symptoms have improved. kl
[2020-04-28 14:32] LABS: Absolute Lymphocytes (CBC) 0.8 K/uL (0.7-4.9); Basophils % 0.1 % (0-1.3); Hematocrit 43.2 % (36.0-45.0); Lymphocytes % 9.6 % (15.3-44.8); MPV 7.9 fL (7.6-11.3); RBC Red Blood Cell Count 4.86 M/uL (3.86-4.86)
[2020-04-28 14:52] LABS: ALT/SGPT 74 U/L (12-78); AST/SGOT 40 U/L (15-37); Albumin 3.1 g/dL (3.4-5.0); Alkaline Phosphatase 72 U/L (45-117); BUN Blood Urea Nitrogen 30 mg/dL (7-18); Bicarbonate 20 mmol/L (21-32); Bilirubin Direct < 0.1 mg/dL (0-0.2); Bilirubin Total 0.4 mg/dL (0.2-1.0); Glucose Level 186 mg/dL (74-106); Magnesium 2.2 mg/dL (1.8-2.4); NT PRO-BNP 263 pg/mL (<125); Potassium 3.7 mmol/L (3.5-5.1); Protein, Total 7.2 g/dL (6.4-8.2); Sodium Level 140 mmol/L (136-145); Troponin (Emerg Dept Use Only) < 0.02 ng/mL (0.0-0.045)
--- OUTSIDE RECORDS SUMMARY | 2020-04-28 15:17 | XMS REPORT | Summary of Care ---
:1950 Author Organization [facility] Address [address] [place] [address] Care Team Providers Name Role Phone Guadalupe Smith Primary Care Provider Reason for Visit Reason Comments Assessment Encounter Details Date Type Department Care Team Description 04/24/2020 Telephone [facility] Pediatric and Jose Barron MD Assessment Adult Primary Care- [address] [place] [address] [place] [address], [phone] [address] [place] [address] Allergies No Known Allergiesdocumented as of this encounter (statuses as of 04/24/2020) Medications Medication Sig Dispensed Refills Start Date [...] as of this encounter (statuses as of 04/24/2020) Active Problems Problem Noted Date Prediabetes 09/07/2017 Pancreatitis 08/27/2017 Essential hypertension 11/17/2015 Hyperlipidemia 11/17/2015 documented as of this encounter (statuses as of 04/24/2020) Immunizations Name Administration Dates Next Due Pneumococcal [...] exists Depression Screening 05/25/2020 05/25/2019 INFLUENZA VACCINE (#1) 2020 COLONOSCOPY 05/24/2028 05/24/2018 DTaP,Tdap,and Td Vaccines (2 - Td) 05/25/2029 05/25/2019 documented as of this encounter Results Not on filedocumented in this encounter Additional Health Concerns Infection Onset Date Last Indicated Resolved Time COVID-19 Confirmed 04/18/2020 04/18/2020 documented as of this encounter Insurance Payer Benefit Plan / Subscriber ID Effective Dates Phone Addre ss Type Group MEDICARE MEDICARE PART xxxxxxxxxxx 2017-Prescurtis [phone] [facility] Medicare A & B t 2 [id number] DOMINIC FARIA [id number] LOVE ERNEST [id number] 2020-Presen I ndemnity t documented as of this encounter
--- OUTSIDE RECORDS SUMMARY | 2020-04-28 15:17 | XMS REPORT | Summary of Care ---
:1950 Author Organization [facility] Address [address] [place] [address] Care Team Providers Name Role Phone Guadalupe Smith Primary Care Provider Reason for Visit Reason Comments Assessment Encounter Details Date Type Department Care Team Description 04/28/2020 Telephone [facility] Family Medicine [place] all[place], DOMINIC Navarro Assessment - [address] [place] [address] [place] [address] [place] [address] [phone] Allergies No Known Allergiesdocumented as of this encounter (statuses as of 04/28/2020) Medications Medication Sig Dispensed Refills Start Date [...] as of this encounter (statuses as of 04/28/2020) Active Problems Problem Noted Date Prediabetes 09/07/2017 Pancreatitis 08/27/2017 Essential hypertension 11/17/2015 Hyperlipidemia 11/17/2015 documented as of this encounter (statuses as of 04/28/2020) Immunizations Name Administration Dates Next Due Pneumococcal [...] ss Type Group MEDICARE MEDICARE PART xxxxxxxxxxx 2017-Presen [phone] [facility] Medicare A & B t 2 [id number] DOMINIC FARIA [id number] LOVE ALEMAN [id number] 2020-Presen I ndemnity t documented as of this encounter
--- OUTSIDE RECORDS SUMMARY | 2020-04-28 15:17 | XMS REPORT | Continuity of Care Document ---
:1950 Author Organization [facility] t Address [address] [place] [address] Care Team Providers Name Role Phone Luis ALFARO, A Attending Clinician Lisa KOWALSKI, A Attending Clinician Pob1, Care Clinic Attending Clinician Unavailable Doctor Unassigned, Name Attending Clinician Unavailable Problems This patient has no known problems. Allergies, Adverse Reactions, Alerts This patient has no known allergies or adverse reactions. Medications This patient has no known medications. Procedures This patient has no known procedures. Encounters Start End Encounter Admission Attending Care Care Encounter Source Date/Time Date/Time Type Type Clinicians Facility Department ID 2020-04-28 2020-04-28 [id number] 00:00:00 00:00:00 [facility] [id number] [place] [id number] Professio [phone] [address] [address] 2020-04-24 2020-04-24 [facility] [id number] 00:00:00 00:00:00 [facility] [place] [id number] [place] [id number] Professio [phone] nal 044 Building 2020-04-18 2020-04-18 Telephone Amelie, Acute [facility] [id number] 00:00:00 00:00:00 [facility] [id number] [place] [id number] Professio [phone] [place] [address] [address] 2020-04-16 2020-04-16 Urgent Pob1, Acute [facility] [id number] 10:38:18 10:58:18 [facility] [id number] [place] [id number] Professio [phone] [place] [address] [address] 2020-02-19 2020-02-19 [facility] [id number] 14:22:08 16:51:14 ne Visit Jose Butcher [place] [id number] [place] [id number] Professio [phone] [address] 2020-02-19 2020-02-19 [facility] [id number] 00:00:00 00:00:00 [facility] [id number] [place] [id number] Professio [phone] [place] [address] [address] 2019-05-25 2019-05-25 [facility] [id number] 11:58:57 23:59:00 Encounter Dorcas Butcher [place] [id number] [place] [id number] [place] [phone] 2019-05-25 2019-05-[id number] 11:58:49 23:59:00 Encounter Dorcas Butcher [place] [id number] [place] [id number] [place] [phone] [id number] 2019-05-25 2019-05-25 [facility] [id number] 10:44:06 11:35:07 Visit [facility]cas [facility] [id number] [place] [id number] Professio [phone] [place] [address] [address] 2018-09-04 2018-09-04 Orders Doctor AMADO [id number] 00:00:00 00:00:00 Only Unassigned, PASTORA [id number] [place] [facility] [id number] [phone] Results This patient has no known results.
[2020-04-28] MEDS ORDERED: ENOXAPARIN 40 MG/0.4 ML SQ ONE (15:27)
[2020-04-28] MEDS ORDERED: dexAMETHasone 10 MG/ML VIAL ONE (15:27)
[2020-04-28] MEDS ORDERED: CEFTRIAXONE/SWI 1gm 1 GM/10 ML SYR ONE (15:27)
[2020-04-28 15:47] LABS: Urine White Blood Cell Casts OK
[2020-04-28 15:48] LABS: Anisocytosis 1+; Blood Morphology Comment NOTED (NOT SEEN); Platelet Estimate ADEQ; Poikilocytosis 1+
[2020-04-28] MEDS ORDERED: AZITHROMYCIN IV 500 MG in NA CHLORIDE 0.9% 250 ML IVPB ONE (16:00)
[2020-04-28] MEDS ORDERED: ACETAMINOPHEN 500 MG TAB PO PRN (16:07)
[2020-04-28] MEDS ORDERED: ALBUTEROL INHALER 60 PUFF/8 GM IH PRN (16:12)
--- NOTE | 2020-04-28 16:18 | P.HP ---
Certification for Inpatient Patient admitted to: Observation With expected LOS: <2 Midnights Patient will require the following post-hospital care: None Practitioner: I am a practitioner with admitting privileges, knowledge of patient current condition, hospital course, and medical plan of care. Services: Services provided to patient in accordance with Admission requirements found in Title 42 Section 412.3 of the Code of Federal Regulations Patient History Date of Service: 04/28/20 Reason for admission: Covid +/ dyspnea on exertion History of Present Illness: Mrs. kimberly zambrano is a 69-year-old female with a past medical history hyperlipidemia, hypertension and chronic kidney disease who was discharged from the hospital April 25 and returns today with complaints of dyspnea on exertion. Patient is positive for COVID+. Patient states that any effort any sort of movement she gets short of breath. She is having a hard time at home. In the emergency room patient is resting in bed. She is not in distress and is not requiring O2. Nurse noted the patient has oxygen saturations dropped to the mid to low 80s with just speaking. ED blood work is fairly unremarkable. Procalcitonin is within normal limits and her creatinine level is slightly elevated but is at her baseline. Creatinine 1.7 today. Patient is having diff iculty when exerting herself to maintain O2 saturations. Will place patient in observation. Consult pulmonology to re-evaluate patient. Allergies No Known Allergies Allergy (Unverified 08/21/17 20:08) Home medications list reviewed: Yes Home Medications: Amlodipine [Norvasc*] 5 mg PO DAILY 04/24/20 Prednisone [Sterapred Ds] 10 mg PO BID #20 tab.ds.pk 04/24/20 Tizanidine [Zanaflex*] 4 mg PO Q8HR PRN 04/24/20 - Past Medical/Surgical History Diabetic: No -: HTN -: Hyperlipidemia -: kidney disease -: herniated disc -: uterine ablation -: cholecstectomy Psychosocial/ Personal History: Lives at home - Family History Family History: Reviewed- Non-Contributory - Social History Smoking Status: Never smoker Alcohol use: No CD- Drugs: No Caffeine use: Yes Place of Residence: Home Review of Systems General: Unremarkable Eyes: Unremarkable ENT: Unremarkable Respiratory: SOB with Excertion, As per HPI Cardiovascular: Unremarkable Genitourinary: Unremarkable Musculoskeletal: Unremarkable Neurological: Unremarkable Physical Examination - Vital Signs Temperature: 97.2 F Blood Pressure: 137/87 Pulse: 112 Respirations: 34 Pulse Ox (%): 95 (RA) - Physical Exam General: Alert, In no apparent distress, Oriented x3 HEENT: Atraumatic, Normocephalic, PERRLA Neck: Supple, Other (Trachea midline) Respiratory: Clear to auscultation bilaterally, Normal air movement Cardiovascular: No edema, Normal pulses, Regular rate/rhythm, Normal S1 S2 Capillary refill: <2 Seconds Gastrointestinal: Normal bowel sounds, Soft and benign, Non-distended Musculoskeletal: No clubbing, No swelling, No contractures Integumentary: No rashes, No breakdown, No significant lesion, No tenderness/swelling Neurological: Normal gait, Normal speech, Normal strength at 5/5 x4 extr - Studies Laboratory Data (last 24 hrs) 04/28/20 14:00: WBC 8.2 D, Hgb 14.6, Hct 43.2, Plt Count 386 D 04/28/20 14:00: Sodium 140, Potassium 3.7, BUN 30 H, Creatinine 1.70 H, Glucose 186 H, Magnesium 2.2, Total Bilirubin 0.4, AST 40 H, ALT 74, Alkaline Phos phatase 72 Microbiology Data (last 24 hrs): 04/28/20 14:00 Nasopharnyx Influenza Type A Antigen Screen - Final 04/28/20 14:00 Nasopharnyx Influenza Type B Antigen Screen - Final Assessment and Plan - Plan Impression: Dyspnea on exertion secondary to positive Covid diagnosis last week and recently discharged from the hospital on April 25, 2020: Chronic kidney disease: Essential hypertension: Hyperlipidemia: Plan: Dyspnea on exertion secondary to positive Covid diagnosis last week and recently discharged from the hospital on April 25, 2020: Patient is currently on room air with 95% O2 saturations. States that she desaturates quickly with exertion. Will hold off on placing patient on O2 support unless necessary. Will start patient on albuterol inhaler, respiratory therapy consult for incentive spirometry, dexamethasone 6 mg daily dose and consult pulmonology. Patient may require O2 support at home for the time being. She was noted to desaturate into the mid to low 80s in the emergency room with just speaking to the nurse. Chronic kidney disease: Currently at baseline. Patient's creatinine levels fluctuated between 1.7 and 2.6 based on last admission. Essential hypertension: Will monitor blood pressure closely. Well resume home medications once verified. Hyperlipidemia: Will hold off on restarting home medications for now. Discharge Plan: Home Plan to discharge in: 24 Hours - Advance Directives Does patient have a Living Will: No Does patient have a Durable POA for Healthcare: No - Code Status/Comfort Care Code Status Assessed: Yes Time Spent Managing Pts Care (In Minutes): 55
[2020-04-28 17:06] LABS: Urine Blood NEGATIVE (NEG); Urine Glucose NEGATIVE (NEG); Urine Protein NEGATIVE (NEG); Urine Specific Gravity 1.015 (1.005-1.030)
[2020-04-28] MEDS ORDERED: POTASSIUM 25 MEQ EFFERV TAB PO ONE (18:00)
[2020-04-28 18:02] VITALS: BMI 27.1
[2020-04-28 18:23] VITALS: O2SAT 96
[2020-04-28 19:34] LABS: Urine Appearance CLEAR; Urine Bilirubin NEGATIVE (NEG); Urine Blood NEGATIVE (NEG); Urine Color YELLOW; Urine Glucose NEGATIVE (NEG); Urine Protein NEGATIVE (NEG); Urine Urobilinogen 0.2 mg/dL (0.2-1.0)
[2020-04-28 20:25] LABS: Urine Microscopic Reflex ORDER UMIC
[2020-04-28 21:15] LABS: Urine Bacteria <20 /HPF (<20); Urine Culture Reflex Order NOT NEEDED; Urine RBC <5 /HPF (NONE SEEN); Urine Yeast PRESENT (NONE SEEN)
[2020-04-29 03:51] LABS: Absolute Lymphocytes (CBC) 0.6 K/uL (0.7-4.9); Basophils % 0.8 % (0-1.3); Hematocrit 38.8 % (36.0-45.0); Lymphocytes % 8.4 % (15.3-44.8); MPV 7.8 fL (7.6-11.3); RBC Red Blood Cell Count 4.41 M/uL (3.86-4.86)
[2020-04-29 04:03] LABS: Magnesium 2.1 mg/dL (1.8-2.4); Potassium 4.9 mmol/L (3.5-5.1)
[2020-04-29] MEDS ORDERED: FUROSEMIDE 20 MG/ 2ML VIAL IV ONE (07:56)
[2020-04-29] MEDS ORDERED: AMLODIPINE 5 MG TAB PO SCH (09:00)
[2020-04-29] MEDS ORDERED: ENOXAPARIN 40 MG/0.4 ML SQ SCH (09:00)
[2020-04-29] MEDS ORDERED: dexAMETHasone 10 MG/ML VIAL IV SCH (09:00)
--- NOTE | 2020-04-29 09:43 | P.DS ---
Admission Date: 04/28/20 Discharge Date: 04/29/20 Disposition: ROUTINE DISCHARGE Discharge Condition: FAIR Reason for Admission: Covid +/ dyspnea on exertion Consultations: Pulmonology- Dr. Mccormick Procedures: Chest Xray EXAM DESCRIPTION: RAD - Chest Single View - 04/28/2020 1:48 pm CLINICAL HISTORY: Cough;Dyspnea, positive COVID test April 17 COMPARISON: April 23, 2020 TECHNIQUE: AP portable chest image was obtained 04/28/2020 1:48 pm . FINDINGS: Lung volumes are relatively low which accentuates vasculature. Hazy ground-glass opacification in the mid right lung field remains. Hazy left base opacification is also present. No dramatic change from the April 23 imaging. Heart and vasculature are normal. No measurable pleural effusion and no pneumothorax. No acute bony abnormality seen. No acute aortic findings suspected. IMPRESSION: Hazy lung parenchymal opacification similar to the April 23 imaging. Given the history of positive COVID-19 test and hazy ground-glass opacification, COVID-19 pneumonia is suspected. Medical problem list Hypoxia secondary to COVID-19 Hypertension Chronic kidney disease Brief History of Present Illness: 69-year-old female with history of hypertension, chronic kidney disease, was recently diagnosed with COVID-19 and was treated in hospital. Patient was discharged and noted that she was becoming short of breath when speaking or with exertion. Patient was evaluated in the emergency department and found to be hypoxic with exertion. Patient was admitted for further evaluation and management. Hospital Course: 69-year-old female with medical history of hypertension, chronic kidney disease was admitted for hypoxia secondary to COVID-19. At rest patient's oxygen saturation was greater than 93% but with speech and exertion patient's saturations dropped into the mid to low 80s. Patient was admitted from the emergency department and received corticosteroids, albuterol inhaler, incentive spirometry, respiratory therapy consult, pulmonology consult. Patient was evaluated by pulmonology who believes that patient is stable for discharge but will require home oxygen for a period of time. During evaluation today patient able to speak in full sentences without desaturation. Patient states that she is able to walk to the bathroom on her own while on oxygen. Patient will be discharged with home oxygen, prednisone 10 mg twice daily for 7 days, albuterol inhaler 2 puffs q 6 H p.r.n.. Patient will need to continue with social distancing, self quarantine for 2 weeks. Continue with CDC guidelines, Health department will contact patient for further testing and the next 2 weeks. Patient to return to emergency department for worsening of symptoms, shortness o f breath on oxygen. Patient history of hypertension, this is remained stable during this hospitalization. Patient will continue with amlodipine 5 mg once daily. Patient follow up with primary care doctor for further management. Patient with history of chronic kidney disease. Patient's renal function has improved from baseline. Patient will need to follow up with primary care doctor for further management. Vital Signs/Physical Exam: Temp Pulse Resp BP Pulse Ox 97.3 F 61 22 H 166/84 H 96 04/29/20 05:00 04/29/20 05:00 04/29/20 05:00 04/29/20 05:00 04/29/20 05:00 General: Alert, In no apparent distress, Oriented x3 HEENT: Atraumatic, Normocephalic Neck: Supple Respiratory: Clear to auscultation bilaterally, Diminished (Bilaterally) Cardiovascular: No edema, Normal S1 S2 Capillary refill: <2 Seconds Gastrointestinal: Normal bowel sounds, Soft and benign Musculoskeletal: No contractures, No erythema, No tenderness Integumentary: No erythema, No warmth Neurological: Normal gait, Normal speech, Normal tone, Sensation intact Laboratory Data at Discharge: WBC 6.9 K/uL (4.3-10.9) D 04/29/20 03:13 Hgb 13.3 g/dL (12.0-15.0) 04/29/20 03:13 Hct 38.8 % (36.0-45.0) 04/29/20 03:13 Plt Count 372 K/uL (152-406) 04/29/20 03:13 Sodium 142 mmol/L (136-145) 04/29/20 03:13 Potassium 4.9 mmol/L (3.5-5.1) 04/29/20 03:13 BUN 31 mg/dL (7-18) H 04/29/20 03:13 Creatinine 1.43 mg/dL (0.55-1.3) H 04/29/20 03:13 Glucose 143 mg/dL (74-106) H 04/29/20 03:13 Magnesium 2.1 mg/dL (1.8-2.4) 04/29/20 03:13 Total Bilirubin 0.4 mg/dL (0.2-1.0) 04/28/20 14:00 AST 40 U/L (15-37) H 04/28/20 14:00 ALT 74 U/L (12-78) 04/28/20 14:00 Alkaline Phosphatase 72 U/L (45-117) 04/28/20 14:00 Home Medications: Amlodipine [Norvasc*] 5 mg PO DAILY 04/24/20 Albuterol Inhaler [Ventolin Inhaler*] 2 puff IH Q6H PRN #1 hfa.[email or web address] 04/29/20 Prednisone [Sterapred Ds] 10 mg PO BID 7 Days #14 tab 04/29/20 New Medications: Prednisone [Sterapred Ds] 10 mg PO BID 7 Days #14 tab Albuterol Inhaler [Ventolin Inhaler*] 2 puff IH Q6H PRN #1 hfa.aer.ad PRN Reason: Shortness Of Breath Patient Discharge Instructions: 1. Please follow primary care doctor in the next 1-2 weeks to follow up this hospitalization. 2. 69-year-old female with medical history of hypertension, chronic kidney disease was admitted for hypoxia secondary to COVID-19. At rest patient's oxygen saturation was greater than 93% but with speech and exertion patient's saturations dropped into the mid to low 80s. Patient was admitted from the emergency department and received corticosteroids, albuterol inhaler, incentive spirometry, respiratory therapy consult, pulmonology consult. Patient was evaluated by pulmonology who believes that patient is stable for discharge but will require home oxygen for a period of time. During evaluation today patient able to speak in full sentences without desaturation. Patient states that she is able to walk to the bathroom on her own while on oxygen. Patient will be discharged with home oxygen, prednisone 10 mg twice daily for 7 days, albuterol inhaler 2 puffs q 6 H p.r.n.. Patient will need to continue with social distancing, self quarantine for 2 weeks. Continue with CDC guidelines, Health department will contact patient for further testing and the next 2 weeks. Patient to return to emergency department for worsening of symptoms, shortness of breath on oxygen. Patient history of hypertension, this is remained stable during this hospitalization. Patient will continue with amlodipine 5 mg once daily. Patient follow up with primary care doctor for further management. Patient with history of chronic kidney disease. Patient's renal function has improved from baseline. Patient will need to follow up with primary care doctor for further management. Diet: AHA Activity: Ad jesenia Time spent managing pt's care (in minutes): 55
--- NOTE | 2020-04-29 10:58 | EKG ---
Test Date: 2020-04-28 Test Time: 14:09:28 Reconciliation Analyst: LIAM MEASUREMENT RESULTS: Intervals: Rate: 80 LA: 154 QRSD: 74 QT: 358 QTc: 412 [place]: P: 59 LA: 154 QRS: 52 T: 59 INTERPRETIVE STATEMENTS: Normal sinus rhythm Normal ECG Compared to ECG 04/23/2020 17:53:20 Sinus tachycardia no longer present Electronically Signed On 04-29-20 10:54:11 CDT by Andrew Ashraf
[2020-04-29 11:35] VITALS: BP 152/86; TEMP 97.6
== END 2020-04-29 14:40 | disposition home or self-care (01) ==
LOC: ER 12:53 → ERHOLD 15:55 → 4TH 17:33
PROVIDERS: ADMIT Physician Assistant; ATTEND Family Medicine
DX: U07.1 COVID-19 (principal); R09.02 Hypoxemia; I12.9 Hypertensive chronic kidney disease with stage 1 through stage 4 chronic kidney disease, or unspecified chronic kidney disease; N18.9 Chronic kidney disease, unspecified; E78.5 Hyperlipidemia, unspecified; Z79.899 Other long term (current) drug therapy
CPT/HCPCS: 93005; 87040 ×2; 87088; 85025 ×2; 87086; 80048 ×2; 36415; 83735 ×2; 80076; 83605 ×2; 84484; 84145; 83880; 87804 ×2; 71045; 96375; 96372; 96374; 99285; U0002; J1940; J0456; J1650 ×2; J1100 ×2; J0696; J7030 ×2; G0378 ×3; 81003; 81015